=== PATIENT | male | born 1965 | race African-American/Black ===

== ENCOUNTER 2018-09-14 18:53 | Inpatient (IN) | payer OTHER ==
--- NOTE | 2018-09-14 19:15 | EDPHY ---
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 Pain unrelieved with oxycodone. No fever no chills. No paresthesia. No sensory or motor deficit. PRIMARY ONCOLOGY: Dr Rasheeda Moody, [facility], [place] REVIEW OF SYSTEMS: 10 systems reviewed and negative with the exception of the elements mentioned in the history of present illness PAST MEDICAL & SURGICAL HISTORY: Clear cell sarcoma left femur With diffuse metastases SOCIAL HISTORY:Nonsmoker. PHYSICAL EXAM (Prior to examination, patient consented to physical exam, hands were washed and my usual and customary physical exam procedures followed) 1) GENERAL: Well-developed, well-nourished, alert and oriented. Appears uncomfortable. 2) HEAD: Normocephalic, atraumatic 3) HEENT: Pupils equal, round, reactive to light bilaterally. Sclera anicteric. 4) NECK: Tender to palpation right paraspinous cervical region. No midline pain. No crepitus. No step-off. 5) LUNGS: Clear auscultation bilaterally, no wheezes, no rhonchi, no retractions. 6) HEART: Regular rate and rhythm, no murmur, no heave, no gallop. 7) ABDOMEN: No guarding, no rebound, no focal tenderness, negative McBurney's, negative Matamoros's, negative Rovsing's, negative peritoneal sign, 8) MUSCULOSKELETAL: Moving all extremities, no focal areas of tenderness, no obvious trauma. No peripheral edema or discoloration. 9) BACK: No CVA tenderness, no midline vertebral tenderness, no fluctuance, no step-off, no obvious trauma, no visual or palpable abnormality. 10) SKIN: No rash, no petechiae. 11) Psychiatric: Patient is oriented X 3, there is no agitation. 12) NEURO: Awake, alert, and oriented to person, place and time. Answers questions appropriately. There were no obvious focal neurologic abnormalities. No cerebellar dysfunction. Cranial nerves 2 through to 12 intact. Normal steady gait. Upper and lower extremities bilaterally with strength 5 / 5, reflexes 2+. DIFFERENTIAL DIAGNOSIS: In no particular order including but not limited to cervical fracture, cervical subluxation, pathologic fracture, muscle strain Constitutional: Initial Vital Signs Temperature (C) 37.6 C 09/14/18 19:20 Heart Rate 93 09/14/18 19:20 Respiratory Rate 16 09/14/18 19:20 Blood Pressure 138/90 H 09/14/18 19:20 O2 Sat (%) 95 09/14/18 19:20 O2 Delivery Mode Nasal Cannula O2 (L/minute) 2 Allergies/Adverse Reactions: No Known Allergies Allergy (Verified 09/14/18 20:07) Home Medications: Medication Instructions Recorded Acetaminophen [Tylenol ES 500 mg 1,000 mg PO Q6 PRN 09/14/18 (*)] Aspirin EC [Aspirin EC 325 mg (*)] 325 mg PO DAILY 09/14/18 Atorvastatin Calcium [Lipitor 20 20 mg PO DAILY 09/14/18 mg (*)] Dapagliflozin Propanediol [Farxiga] 10 mg PO DAILY 09/14/18 Hydrochlorothiazide [HCTZ (*)] 25 mg PO DAILY 09/14/18 Ibuprofen [Motrin (*)] 400 mg PO Q6H PRN 09/14/18 Levothyroxine [Synthroid 150 mcg 150 mcg PO DAILY06 09/14/18 (*)] Losartan Potassium [Cozaar 50 mg 100 mg PO DAILY 09/14/18 (*)] Multivitamins [Multivitamin (*)] 1 each PO DAILY 09/14/18 Sunitinib Malate [Sutent] 37.5 mg PO DAILY 09/14/18 amLODIPine BESYLATE [Norvasc 10 mg 10 mg PO DAILY 09/14/18 (*)] metFORMIN HCL [Glucophage 500 mg 1,000 mg PO BIDMEAL 09/14/18 (*)] oxyCODONE IR [Oxycodone Ir (*)] 5 - 10 mg PO Q4H PRN 09/14/18 Medical Decision Making - Diagnostics Imaging Results: Imaging Impressions Cervical Spine CT 09/14/18 19:19 Impression: 1. Nondisplaced fracture, pathologic, resulting from a lytic lesion at the right anterior aspect of C4, as above described. 2. Otherwise, multiple smaller lytic lesions throughout the cervical spine, without associated spinal canal encroachment or instability. Findings and recommendations discussed with Delfino Christie PA-C, at 8:32 p.m. on September 14, 2018. Final report concurs with initial preliminary interpretation. Images reviewed myself ED Course/Re-evaluation: 7:19 p.m.: Discussed case with secondary supervising physician Dr. Fabiano Chong in the ER. No neuro deficits on exam. Concern in this patient given his metastatic history, we discussed possibility of metastatic disease to the cervical spine. Will plan on more than likely admission, at a minimum for pain control, will obtain CT imaging and likely MRI. 8:33 p.m.: CT cervical spine is positive for right inferior cortex C4 pathologic fracture. Patient was placed into a cervical collar. I discussed the imaging results with the patient. He remains with a nonfocal exam no upper extremity weakness or deficits or complaints. Will plan on admission, consultation with Neurosurgery, hospitalist, Oncology. 8:41 p.m.: Consultation with Dr. Beard Neurosurgery 8:47 p.m.: Consultation with hospitalist Dr. Nolasco for admission 9:11 p.m.: Consultation with oncology Dr. Medina who will consult - Data Points Laboratory Results: Laboratory Results 09/14/18 20:00 09/14/18 20:00 09/14/18 09/14/18 20:00 20:00 WBC 8.11 10^3/uL 10^3/uL (3.80-9.50) RBC 4.43 10^6/uL 10^6/uL (4.40-6.38) Hgb 11.7 g/dL L g/dL (13.7-17.5) Hct 35.4 % L % (40.0-51.0) MCV 79.9 fL L fL (81.5-99.8) MCH 26.4 pg L pg (27.9-34.1) MCHC 33.1 g/dL g/dL (32.4-36.7) RDW 13.8 % % (11.5-15.2) Plt Count 494 10^3/uL H 10^3/uL (150-400) MPV 8.3 fL L fL (8.7-11.7) Neut % (Auto) 69.7 % % (39.3-74.2) Lymph % (Auto) 23.9 % % (15.0-45.0) [place] % (Auto) 5.7 % % (4.5-13.0) Eos % (Auto) 0.1 % L % (0.6-7.6) Baso % (Auto) 0.2 % L % (0.3-1.7) Nucleat RBC Rel Count 0.0 % % (0.0-0.2) Absolute Neuts (auto) 5.65 10^3/uL 10^3/uL (1.70-6.50) Absolute Lymphs (auto) 1.94 10^3/uL 10^3/uL (1.00-3.00) Absolute Monos (auto) 0.46 10^3/uL 10^3/uL (0.30-0.80) Absolute Eos (auto) 0.01 10^3/uL L 10^3/uL (0.03-0.40) Absolute Basos (auto) 0.02 10^3/uL 10^3/uL (0.02-0.10) Absolute Nucleated RBC 0.00 10^3/uL 10^3/uL (0-0.01) Immature Gran % 0.4 % % (0.0-1.1) Immature Gran # 0.03 10^3/uL 10^3/uL (0.00-0.10) Sodium 135 mEq/L mEq/L (135-145) Potassium 4.2 mEq/L mEq/L (3.3-5.0) Chloride 102 mEq/L mEq/L (97-110) Carbon Dioxide 24 mEq/l mEq/l (22-31) Anion Gap 9 mEq/L mEq/L (6-14) BUN 11 mg/dL mg/dL (7-23) Creatinine 0.6 mg/dL L mg/dL (0.7-1.3) Estimated GFR > 60 Glucose 161 mg/dL H mg/dL (70-100) Calcium 9.2 mg/dL mg/dL (8.5-10.4) Medications Given: Discontinued Medications Hydromorphone HCl (Dilaudid) 1 mg IVP EDNOW ONE Stop: 09/14/18 19:17 Last Admin: 09/14/18 19:49 Dose: 1 mg Ondansetron HCl (Zofran) 4 mg IVP EDNOW ONE Stop: 09/14/18 19:17 Last Admin: 09/14/18 19:49 Dose: 4 mg Departure - Departure Disposition: [facility] Inpatient Acute Clinical Impression: Pathologic fracture C4 Condition: Fair
[2018-09-14] MEDS ORDERED: HYDROmorphONE/DILAUDID 1 MG/ML INJ IVP ONE (19:16)
[2018-09-14] MEDS ORDERED: ONDANSETRON 4 MG/2 ML VIAL IVP ONE (19:16)
[2018-09-14 20:16] LABS: PLATELET COUNT 494 10^3/uL (150-400)
[2018-09-14] MEDS ORDERED: ACETAMINOPHEN 325 MG TAB PO PRN (21:07)
[2018-09-14] MEDS ORDERED: ONDANSETRON DISINTEGRATING 4 MG TAB PO PRN (21:07)
[2018-09-14] MEDS ORDERED: ONDANSETRON 4 MG/2 ML VIAL IVP PRN (21:07)
--- NOTE | 2018-09-14 21:15 | PDGENHP ---
History and Physical - Chief Complaint Neck pain - History of Present Illness Brian Wood is a 53 yo M with a PMHx of Clear cell carcinoma of L femur s/p L AKA with metastatic disease who presents to [facility] for 3 day hx of neck pain. He reports that neck pain started on Thursday Morning. He reports pain was sharp, R sided, radiated to his R shoulder. He was unable to turn his head to the right. He was taking oxycodone and icing with mild improvement in pain. He reports that pain persisted and symptoms worsening which prompted his ED visit today. History Information - Allergies/Home Medication List Allergies/Adverse Reactions: No Known Allergies Allergy (Verified 09/14/18 20:07) Home Medications: Acetaminophen [Tylenol ES 500 mg (*)] 1,000 mg PO Q6 PRN 09/14/18 [Last Taken Unknown] Aspirin EC [Aspirin EC 325 mg (*)] 325 mg PO DAILY 09/14/18 [Last Taken 09/11/18 ] Atorvastatin Calcium [Lipitor 20 mg (*)] 20 mg PO DAILY 09/14/18 [Last Taken ] Dapagliflozin Propanediol [Farxiga] 10 mg PO DAILY 09/14/18 [Last Taken 09/11/18 ] Hydrochlorothiazide [HCTZ (*)] 25 mg PO DAILY 09/14/18 [Last Taken 09/11/18] Ibuprofen [Motrin (*)] 400 mg PO Q6H PRN 09/14/18 [Last Taken 09/14/18] Levothyroxine [Synthroid 150 mcg (*)] 150 mcg PO DAILY06 09/14/18 [Last Taken ] Losartan Potassium [Cozaar 50 mg (*)] 100 mg PO DAILY 09/14/18 [Last Taken 09/11] Multivitamins [Multivitamin (*)] 1 each PO DAILY 09/14/18 [Last Taken 09/11/18] Sunitinib Malate [Sutent] 37.5 mg PO DAILY 09/14/18 [Last Taken 09/11/18] amLODIPine BESYLATE [Norvasc 10 mg (*)] 10 mg PO DAILY 09/14/18 [Last Taken ] metFORMIN HCL [Glucophage 500 mg (*)] 1,000 mg PO BIDMEAL 09/14/18 [Last Taken 09/11/18] oxyCODONE IR [Oxycodone Ir (*)] 5 - 10 mg PO Q4H PRN 09/14/18 [Last Taken Unknown] I have personally reviewed and updated: family history, medical history, social history, surgical history - Past Medical History hypertension Additional medical history: Clear cell carcinoma, HLD, Hypothyroidism - Surgical History Additional surgical history: L AKA - Family History Positive for: non-pertinent - Social History Smoking Status: Never smoked Review of Systems Review of Systems: ROS: 10pt was reviewed & negative except for what was stated in HPI & below Physical Exam Physical Exam: Temp Pulse Resp BP Pulse Ox 37.6 C 95 16 138/86 H 95 09/14/18 19:20 09/14/18 20:45 09/14/18 20:45 09/14/18 20:45 09/14/18 20:45 Constitutional: uncomfortable Eyes: PERRL Ears, Nose, Mouth, Throat: other (cervical collar in place) Cardiovascular: regular rate and rhythym Respiratory: no respiratory distress, no rales or rhonchi Gastrointestinal: soft, non-tender abdomen Genitourinary: no bladder fullness Skin: warm Musculoskeletal: pain with ROM, generalized weakness Neurologic: AAOx3 Psychiatric: interacting appropriately Lab Data & Imaging Review 09/14/18 20:00 09/14/18 20:00 WBC 8.11 10^3/uL (3.80-9.50) 09/14/18 20:00 RBC 4.43 10^6/uL (4.40-6.38) 09/14/18 20:00 Hgb 11.7 g/dL (13.7-17.5) L 09/14/18 20:00 Hct 35.4 % (40.0-51.0) L 09/14/18 20:00 MCV 79.9 fL (81.5-99.8) L 09/14/18 20:00 MCH 26.4 pg (27.9-34.1) L 09/14/18 20:00 MCHC 33.1 g/dL (32.4-36.7) 09/14/18 20:00 RDW 13.8 % (11.5-15.2) 09/14/18 20:00 Plt Count 494 10^3/uL (150-400) H 09/14/18 20:00 MPV 8.3 fL (8.7-11.7) L 09/14/18 20:00 Neut % (Auto) 69.7 % (39.3-74.2) 09/14/18 20:00 Lymph % (Auto) 23.9 % (15.0-45.0) 09/14/18 20:00 [place] % (Auto) 5.7 % (4.5-13.0) 09/14/18 20:00 Eos % (Auto) 0.1 % (0.6-7.6) L 09/14/18 20:00 Baso % (Auto) 0.2 % (0.3-1.7) L 09/14/18 20:00 Nucleat RBC Rel Count 0.0 % (0.0-0.2) 09/14/18 20:00 Absolute Neuts (auto) 5.65 10^3/uL (1.70-6.50) 09/14/18 20:00 Absolute Lymphs (auto) 1.94 10^3/uL (1.00-3.00) 09/14/18 20:00 Absolute Monos (auto) 0.46 10^3/uL (0.30-0.80) 09/14/18 20:00 Absolute Eos (auto) 0.01 10^3/uL (0.03-0.40) L 09/14/18 20:00 Absolute Basos (auto) 0.02 10^3/uL (0.02-0.10) 09/14/18 20:00 Absolute Nucleated RBC 0.00 10^3/uL (0-0.01) 09/14/18 20:00 Immature Gran % 0.4 % (0.0-1.1) 09/14/18 20:00 Immature Gran # 0.03 10^3/uL (0.00-0.10) 09/14/18 20:00 Sodium 135 mEq/L (135-145) 09/14/18 20:00 Potassium 4.2 mEq/L (3.3-5.0) 09/14/18 20:00 Chloride 102 mEq/L (97-110) 09/14/18 20:00 Carbon Dioxide 24 mEq/l (22-31) 09/14/18 20:00 Anion Gap 9 mEq/L (6-14) 09/14/18 20:00 BUN 11 mg/dL (7-23) 09/14/18 20:00 Creatinine 0.6 mg/dL (0.7-1.3) L 09/14/18 20:00 Estimated GFR > 60 09/14/18 20:00 Glucose 161 mg/dL (70-100) H 09/14/18 20:00 Calcium 9.2 mg/dL (8.5-10.4) 09/14/18 20:00 Assessment & Plan Assessment: C4 Pathologic Fracture - 3 days of neck pain - CT Cervical spine shows non-displaced fx, pathologic, resulting from lytic lesion at R ant. aspect of C4 - No focal deficits noted on exam - Neurosurgery consulted in ED, will see in the AM - Continue cervical collar overnight - Pain management PRN Metastatic Clear Carcinoma - Follows with [facility] in [place], Dr. Moody - Recently started Sunitinib last Thursday, will continue for now - ED has put call out to Oncology, f/u in AM - Per patient, he had recent PET that shows multiple metastases - Patient has appt at [facility] next month for 2nd opinion T2DM - Hold home Metformin, continue home Dapagliflozin - SSI ordered as IP HTN - Continue home HCTZ, Losartan, Amlodipine Hypothyroidism - Continue home Synthroid FEN: IVF PRN, Regular diet, NPO after midnight Code: FULL PPx: SubQ Heparin Dispo: Admit to Medicine
[2018-09-14] MEDS: HYDROmorphONE/DILAUDID 1 MG/ML INJ IVP PRN (22:48)
[2018-09-14] MEDS: HEPARIN 5,000 UNIT/0.5 ML INJ SC SCH (23:03)
[2018-09-15] MEDS: HEPARIN 5,000 UNIT/0.5 ML INJ SC SCH ×2 (04:47→15:43)
[2018-09-15] MEDS: LEVOTHYROXINE 150 MCG TAB PO SCH ×2 (04:48→09:12)
[2018-09-15] MEDS: ASPIRIN EC 325 MG TAB PO SCH (09:11)
[2018-09-15] MEDS: ATORVASTATIN CALCIUM 20 MG TAB PO SCH (09:12)
[2018-09-15] MEDS: MULTIVITAMINS 1 EACH TAB PO SCH (09:12)
[2018-09-15] MEDS: HYDROCHLOROTHIAZIDE 25 MG TAB PO SCH (09:12)
[2018-09-15] MEDS: LOSARTAN POTASSIUM 50 MG TAB PO SCH (09:12)
[2018-09-15] MEDS: IBUPROFEN 200 MG TAB PO PRN ×2 (09:18→13:02)
[2018-09-15] MEDS: SUNITINIB MALATE 37.5 MG PO SCH (09:30)
[2018-09-15] MEDS: Dapagliflozin Propanediol [Farxiga] 10 MG PO SCH (09:31)
--- NOTE | 2018-09-15 09:59 | PDMN ---
Medical Necessity Medical necessity: [facility] Musculoskeletal Disease: 53 yo w/ pathologic C4 fracture from clear cell carcinoma L femur s/p AKA w/ mets. Cervical collar placed, neurosurg consult. Meets IP criteria for vertebral fx requiring observation for instability or neurologic compromise.
--- NOTE | 2018-09-15 12:09 | ASMTCMCOM ---
CM Note CM Note Notes: Patient plan of care reviewed in rounds. Patient is a 53 year old male with diagnosis of Clear Cell Sarcoma who presented to the ED with c/o increasing neck pain. He has been diagnosed with a pathological fracture at C4 from metastatic disease. Nuerosurgery ordered collar and plan is likely to proceed with radiation therapy. Oncology to consult. CM to follow for needs. Plan: TBD Date Signed: 09/15/2018 12:08 PM Electronically Signed By:Aicha Reynoso RN
[2018-09-15] MEDS ORDERED: GADOBUTROL 10 ML VIAL IVP ONE (14:30)
--- NOTE | 2018-09-15 15:35 | ASMTCMCOM ---
CM Note CM Note Notes: CM met with pt and partner, Shireen. Both waiting to hear back from oncology. CM provided support and discussed additional services pt may need. Pt may benefit from adaptive equipment education from PT. CM to follow. Date Signed: 09/15/2018 03:35 PM Electronically Signed By:PURVI Cotton
[2018-09-15] MEDS: HYDROmorphONE/DILAUDID 1 MG/ML INJ IVP PRN (15:40)
--- NOTE | 2018-09-15 17:25 | HOSPPROG ---
Hospitalist Progress Note Assessment/Plan: * Pathologic fracture C4 -in C-collar -neurosurgery has ordered MRI for further eval -no emergent surgery, oncology considering XRT * Metastatic Sarcoma -continue chemo * AKA due to malignancy -PT/OT when clear for mobility * DM -CT done without IV contrast - okay to resume metformin * HTN -cozaar, HCTZ, norvasc Subjective: No new complaints. Objective: Vital Signs Temp Pulse Resp BP Pulse Ox 36.9 C 75 12 105/73 94 09/15/18 16:27 09/15/18 16:27 09/15/18 16:27 09/15/18 16:27 09/15/18 16:27 09/14/18 09/15/18 09/16/18 05:59 05:59 05:59 Intake Total 1300 350 Output Total 600 450 Balance 700 -100 CT spine - lytic lesion C4 with pathologic fracture case d/w DR. Medina regarding treatment plan Laboratory Tests 09/14/18 20:00 Hct 35.4 L MCV 79.9 L IV dilaudid for pain - Physical Exam Constitutional: no apparent distress, appears nourished, not in pain Cardiovascular: regular rate and rhythym, no murmur, rub, or gallop Respiratory: no respiratory distress, no rales or rhonchi, clear to auscultation Gastrointestinal: normoactive bowel sounds, soft, non-tender abdomen, no palpable masses Skin: no rashes or abrasions, no fluctuance, no induration Neurologic: AAOx3, sensation intact bilaterally Psychiatric: interacting appropriately, not anxious, not encephalopathic, thought process linear ICD10 Worksheet Patient Problems: Problems Problem Status Onset Sarcoma Acute - ICD10 Problem Qualifiers (1) Sarcoma
[2018-09-15] MEDS: metFORMIN HCL 500 MG TAB PO SCH (18:01)
--- NOTE | 2018-09-15 18:30 | GCON ---
DATE OF CONSULTATION: 09/15/2018 TIME SEEN: 6:45 a.m. CHIEF COMPLAINT: 1. Neck pain with history of sarcoma with CT scan showing likely mets to C-spine. 2. Lytic lesion at C4. HISTORY OF PRESENT ILLNESS: Mr. 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 He prese nted to the emergency department after calling 911 with a 3-day history of neck pain. He reports emile t the neck pain started on Thursday morning. This occurred when he woke up. He was having some diffic ulty with moving his neck due to the pain. He also complains and continues to complain of some right shoulder pain. He denies any other upper extremity complaints such as numbness, tingling, or weakne ss. He denies any lower extremity numbness, tingling, or weakness. He does have an rqhoj-shl-ceay a mputation on the left side as mentioned. On Thursday, he woke up with this pain, was able to get up to the couch. Thursday, it was more difficult for him to get out of bed, and then yesterday he came to t he point where he slipped off the sofa and was weak enough that he could not get himself up. He wait ed until his girlfriend came home and was able to help him. They called 911 and brought him into the emergency department for evaluation. He denies any chest pain or shortness of breath. No headaches . No visual changes. No shortness of breath. No abdominal complaints. No complaints. REVIEW OF SYSTEMS: Complete 10-point review of systems was performed and negative, otherwise noted i n HPI. ALLERGIES: No known drug allergies. MEDICATIONS: Prior to admission, aspirin, Tylenol, Lipitor, Farxiga, hydrochlorothiazide, Motrin, Sy nthroid, Cozaar, multivitamin, Sutent, Norvasc, Glucophage, and oxycodone. PAST MEDICAL HISTORY: Significant for hypertension, clear cell carcinoma, hyperlipidemia, and hypoth yroidism. SURGICAL HISTORY: Left byphb-wfh-mopc amputation. FAMILY HISTORY: Reviewed and not pertinent. SOCIAL HISTORY: The patient is in a partnership, lives on [address], and is a nonsmoker, never has. PHYSICAL EXAM: GENERAL: This is an awake, alert, oriented male in no acute distress. VITAL SIGNS: Most recent, blood pressure 130/79, 96 MAP, 77 heart rate, 16 respirations, 97% on 2 L, temperature 37.3. HEENT: Head is normocephalic, atraumatic. Pupils are equal, round, reactive to light. EOM i s intact. Full visual han by confrontation. Ears are patent. Nose is patent. NECK: Soft and s upple. Range of motion was not tested due to the nature of injury. Collar in place: RESPIRATORY AN D CARDIAC: Deferred. ABDOMEN: Soft, nontender. No peritoneal signs. AND RECTAL: Deferred. N EUROLOGIC: Patient is awake, alert, oriented to name, place, location, date, time, and situation. M jeff is intact to immediate, past, and current events. Speech: No aphasia, dysarthria, or dysphoni a. Cranial nerves 2-12 grossly intact. Motor: Patient has 5/5 strength in all muscle groups of yuliya ateral upper and lower extremities to include deltoids, biceps, triceps, brachioradialis, wrist flexi on, extensors, wrist closer, intrinsic fingers, iliopsoas, quadriceps, hamstring, plantar flexion, dorsiflexi on, EHL testing with the exception of left lower extremity due to above-knee amputation. Has good hi p flexor at 5/5. Sensation is grossly intact to light touch throughout all dermatome distributions o f the lower extremities except noted in left lower extremity due to above-knee amputation. The patie nt has 2+ DTRs to biceps, triceps, brachioradialis, knee jerk on the right and ankle jerk on the righ t. MEDICAL DECISION MAKING: Diagnostic studies, laboratory tests obtained 09/14/2018, at 8 o'clock show a white count of 8.11, H and H 11.7 and 35.4 with a platelet count of 494. Chemistries on 8, sodium 135, potassium 4.2, chloride 102, CO2 24, creatinine 0.6, and glucose of 161. A CT scan of the cervical spine obtained 09/14/2018, at 1919 shows a nondisplaced fracture that is li luz pathological resulting from a lytic lesion in the right anterior aspect of C4. There are multip le smaller lytic lesions throughout the cervical spine. Pending MRI of the cervical, thoracic, and lumbar spine. IMPRESSION: 1. History of clear cell sarcoma per patient's account. From admitting doctor was clear cell carcin brian of the left lower extremity. 2. C4 pathologic fracture with multiple lytic lesions noted in the cervical spine with recent onset of neck pain. 3. Thoracic and lumbar spine pain. PLAN AND DISCUSSION: The patient is a 53-year-old male that he reports to me of a clear cell sarcoma , but his admitting doctor wrote in his note is a clear cell carcinoma which seems more consistent wi th his diagnosis. We will defer this to Oncology as they were consulted as well. He has a pathologi c fracture of C4 with multiple lytic lesions in the cervical spine. He does have thoracic and lumbar spine pain. An MRI of the cervical, thoracic and lumbar spine was ordered with and without contrast . The patient was seen, evaluated both by myself and Dr. Price. At this point, he does have some r ight shoulder pain, but neurologically he is fine to his upper and right lower extremity. He does abarca ve this qyenz-jki-jmio amputation that he has good hip mobility with. I spoke with the patient about the diagnostic imaging. We will get this and then will also get an oncology evaluation. He underst ands and agrees with the treatment plan and course. All questions and concerns were answered. /[id number]/MODL
--- NOTE | 2018-09-15 20:42 | GCON ---
PRIMARY ONCOLOGIST: Ceci Moody MD. 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 He last saw Dr. Moody 08/19/2018. His history dates back to February 2017 when he was diagnosed wit h stage 3 clear cell sarcoma of left lower extremity. He was treated with radical resection. Final path showing a 10 cm clear cell sarcoma with negative margins. Postoperatively, he received radiatio n therapy. Due to his histology, which does not respond to systemic chemotherapy he was not recommen ded adjuvant treatment. The patient was on observation with periodic imaging, doing well until 2017, when he developed a local recurrence. This was treated with left above knee amputation. Postsurgically, he resumed regular imaging of the chest. This was done prior to his last visit with Dr. Moody in mid July and showed new pulmonary nodules, most of them small in the 4-6 mm range, largest one in right upper lobe measured 1.2 x 0.6 cm in size. He was referred for wedge excisions. He had the larger lesion resected, in addition to this, two smaller lesions were also excised. Marilia l path showed high-grade clear cell sarcoma involving the larger lesions as well as the smaller lesio ns. Based on this information, the patient now has unresectable disease and appears to have diffuse infiltration of lung by small metastatic lesions measuring anywhere from 3-4 mm in size. When he met with Dr. Moody in early August, discussed that his cancer is not curable. Discussed the fact that clear cell sarcomas are typically chemotherapy resistant. Case reports of patient responding to Sute nt which Dr. Moody has prescribed. She also sent a foundation 1 test and the results have been del ayed and are pending at this time. The patient is also seeking a second opinion at [facility]. Yesterday evening, the patient presented to [facility] with acute neck pain that has be en going on for 3 days. The patient reported neck pain started on Thursday morning, was sharp right-si ded, radiated to right shoulder, unable to turn his head. No improvement of pain with narcotics and i cing. CT of the cervical spine showed nondisplaced C4 fracture, a lytic lesion at this area measuring 11 x 9 mm and multiple additional lucencies present for example at C5 and at C3. No spinal canal encroach ment or instability. Based on his outpatient records, it looks like he was pending initiation of Zom eta for lytic bone lesions. The patient is currently in full spine MRI right now, not able to take a history. PAST MEDICAL HISTORY: Hypertension, also has a history of diabetes mellitus type 2. PAST SURGICAL HISTORY: Reviewed in HPI. Had a left [id number] amputation. FAMILY HISTORY: Not pertinent. SOCIAL HISTORY: Never smoked. MEDS: Have been reviewed in EMR. PHYSICAL EXAM: VITAL SIGNS: Today only have vitals which show blood pressure 133/79, heart rate 73, saturating 97% on 2 liters nasal cannula, temperature is 36.8. LABS: Hemoglobin 11.7, hematocrit 35.4, MCV is 79, platelet count of 494,000. ASSESSMENT AND PLAN: A 53-year-old gentleman with metastatic clear cell sarcoma, significant amount of metastases to the lung, mostly in a miliary pattern, who presents with a new C4 lytic lesion and n on displaced fracture. 1. Acute neck pain due to lytic lesion and C4 nondisplaced fracture. Currently in a neck brace. Neur osurgery has ordered full spine MRI which is pending right now. The patient was to get Zometa as an outpatient today based on outpatient records. I believe he has started on Sutent. Will discuss with Neurosurgery. He may get some mild benefit from SBRT, although clear cell sarcomas are not typically very responsive. He has no evidence of cord compression and would treat conservatively at this time . Will discuss with Dr. Luiz Fuller. 2. Pain management. Controlled on current regimen. 3. Metastatic clear cell sarcoma. Follow up with Dr. Moody [facility] in [place]. Have communicated with her, has begun Sutent and seemingly doing relatively well on this now. I do not have access to his most recent PET scan, but apparently showed diffuse bony disease. He is also pending a second opinio n at [facility]. 4. Type 2 diabetes, hypertension, hypothyroidism, per Internal Medicine. We will continue to follow and discuss with Neurosurgery as well as Dr. Albright. More than 30 minutes spent with patient on chart review and looking over previous labs and imaging. /[id number]/MODL
[2018-09-15] MEDS: oxyCODONE IR 5 MG TAB PO PRN (21:31)
[2018-09-16] MEDS: IBUPROFEN 200 MG TAB PO PRN (05:50)
[2018-09-16] MEDS: LEVOTHYROXINE 150 MCG TAB PO SCH (05:50)
--- NOTE | 2018-09-16 06:53 | NEUSURGPN ---
Assessment/Plan: Assessment: 53 yo male with hx of clear cell sarcoma with recent hx of left AKA in 07/06. Pt presents with a new C4 pathologic fracture Plan: -clear cell sarcoma: pt with MRI of the C and T spine done that shows extensive tumor mets in the spine, ribs, and sternum -likely will not recommend any surgery -pending MRI of the L spine this am -PT/OT -Hospitalist admitted -Oncology on board as well -continue with collar at all times -call with any questions or concerns -pt understands and agrees Subjective: Awake and alert. NAD. Eating/drinking and voiding. No f/c/n/v/d. No new events or concerns. Objective: AAO x 3, PERRLA/EOMI no droop CN 2-12 grossly intact +lt touch 5/5 BUE = 5/5 RLE LLE 5/5 to HF/IP-pt with left AKA Neuro Check Frequency: per routine Urinary Catheter in Place: No - Physician Discussed Patient with Dr.: Albert Patient Seen by .: Albert Neurosurgery Physical Exam - Vitals, I&O, Labs I and O 09/15/18 09/16/18 09/17/18 05:59 05:59 05:59 Intake Total 1300 1350 Output Total 600 950 Balance 700 400 Weight 102.058 kg Intake: Oral (ml) 300 1350 IV Infused (ml) 1000 Output: Urine (ml) 600 950 Urinal 600 950 Other: Intake Quantity Yes Sufficient Number of Voids 0 Urinal 1 1 Vital Signs Temp Pulse Resp BP Pulse Ox 37.3 C 81 16 125/86 H 88 L 09/16/18 04:45 09/16/18 04:45 09/16/18 04:45 09/16/18 04:45 09/16/18 04:45 ICD10 Worksheet Patient Problems: Problems Problem Status Onset Sarcoma Acute
[2018-09-16] MEDS: ATORVASTATIN CALCIUM 20 MG TAB PO SCH (08:37)
[2018-09-16] MEDS: LOSARTAN POTASSIUM 50 MG TAB PO SCH (08:37)
[2018-09-16] MEDS: HYDROCHLOROTHIAZIDE 25 MG TAB PO SCH (08:39)
[2018-09-16] MEDS: MULTIVITAMINS 1 EACH TAB PO SCH (08:39)
[2018-09-16] MEDS: ASPIRIN EC 325 MG TAB PO SCH (08:44)
[2018-09-16] MEDS: Dapagliflozin Propanediol [Farxiga] 10 MG PO SCH (08:44)
[2018-09-16] MEDS: SUNITINIB MALATE 37.5 MG PO SCH (08:46)
[2018-09-16] MEDS ORDERED: ENOXAPARIN 40 MG/0.4 ML SYR SC SCH (09:00)
[2018-09-16] MEDS: metFORMIN HCL 500 MG TAB PO SCH (10:32)
[2018-09-16 12:41] VITALS: BP 114/74
--- NOTE | 2018-09-16 12:54 | SOAPPROG ---
SOAP Progress Note Assessment/Plan: Assessment/Plan: 53 yo gentleman w metastatic clear cell sarcoma admitted w acute neck pain from C4 fracture 1. C4 fracture - nondisplaced and no cord compression NSG appreciated have set up Consult w Dr Candace Faye in [place] for SBRT early next week will need Zometa as outpt cont neck brace and follow up w NSG 2. stage IV clear cell sarcoma - on sutent diffuse osseous and lung disease 3. Pain - will go home w current regimen 4. Other medical issues - per IM Home today 09/16/18 12:50 09/16/18 12:54 Subjective: still in neck collar no acute events Objective: Vital Signs Temp Pulse Resp BP Pulse Ox 37.7 C 78 16 114/74 90 L 09/16/18 12:38 09/16/18 07:17 09/16/18 12:38 09/16/18 12:38 09/16/18 12:38 09/15/18 09/16/18 09/17/18 05:59 05:59 05:59 Intake Total 1300 1350 Output Total 600 950 Balance 700 400 gen - NAD HEENT - anicteric CV - RRR Resp - CTA anteriorly Abd - soft, NT Ext - no edema Neuro - nonfocal ICD10 Worksheet Patient Problems: Problems Problem Status Onset Sarcoma Acute
[2018-09-16] MEDS: oxyCODONE IR 5 MG TAB PO PRN (13:14)
--- NOTE | 2018-09-16 15:33 | ASMTDCNOTE ---
Case Management Discharge Discharge Order Complete? Answers: Yes Patient to Obtain Answers: via Family Medications Transportation Arranged Answers: Family/Friends Transport will Pick (Date 09/16/2018 12:00 AM & Time) Family Notified Answers: Yes Notes: pt to call significant other Discharge Comments Notes: Spoke with pt in the room and with RN and physician. OT recommending home independently and pt is comfortable with this plan. No CM needs noted at this time. Date Signed: 09/16/2018 03:32 PM Electronically Signed By:Cyndy Godinez
--- NOTE | 2018-09-16 15:36 | ASDISCHSUM ---
Discharge Information Plan Status:Home with No Needs Medically Cleared to Leave:09/15/2018 Discharge Date:09/15/2018 CM D/C Disposition:Home Health Service ADT D/C Disposition: Projected Discharge Date:09/15/2018 Transportation at D/C:Family Discharge Delay Reason: Follow-Up Date:09/15/2018 Discharge Slot: Final Diagnosis:pathological cervical fracture Placement Information Patient Contact Information Contact Name:ROBB Relationship:Life Partner Address:[address] [place] [address] Work Phone: City:[place] Alternate Phone: [facility]/Zip Code:[place] [address] Email: Financial Information Financial Class:BCOP Primary Plan Desc:JELANI MCGEE PPO Primary Plan Number:[id number] Secondary Plan Desc: Secondary Plan Number: Assessment Information [facility] CM Progress Note CM Note CM Note Notes: Patient plan of care reviewed in rounds. Patient is a 53 year old male with diagnosis of Clear Cell Sarcoma who presented to the ED with c/o increasing neck pain. He has been diagnosed with a pathological fracture at C4 from metastatic disease. Nuerosurgery ordered collar and plan is likely to proceed with radiation therapy. Oncology to consult. CM to follow for needs. Plan: TBD Date Signed: 09/15/2018 12:08 PM Electronically Signed By:Aicha Reynoso RN [facility] CM Progress Note CM Note CM Note Notes: CM met with pt and partner, Shireen. Both waiting to hear back from oncology. CM provided support and discussed additional services pt may need. Pt may benefit from adaptive equipment education from PT. CM to follow. Date Signed: 09/15/2018 03:35 PM Electronically Signed By:PURVI Cotton Case Management Discharge Plan Note Case Management Discharge Discharge Order Complete? Answers: Yes Patient to Obtain Answers: via Family Medications Transportation Arranged Answers: Family/Friends Transport will Pick (Date 09/16/2018 12:00 AM & Time) Family Notified Answers: Yes Notes: pt to call significant other Discharge Comments Notes: Spoke with pt in the room and with RN and physician. OT recommending home independently and pt is comfortable with this plan. No CM needs noted at this time. Date Signed: 09/16/2018 03:32 PM Electronically Signed By:Cyndy Godinez Intervention Information Intervention Type:*Incorrect Registration Date of Service:09/15/2018 09:08 AM Patient Type:Observation Staff Member:Glo Carter Hours: Discipline: Severity: Comment:
--- NOTE | 2018-09-16 15:39 | ASMTLACE ---
LACE Length of stay for Answers: 2 days current admission Acuity / Level of Answers: Yes Care: Did the patient have an inpatient admission? Comorbidities - select Answers: Any tumor (including all that apply lymphoma or leukemia) Other Notes: HLD, Hypothyroid # of Emergency department Answers: 1-2 visits in the last 6 months Score: 9 Date Signed: 09/16/2018 03:38 PM Electronically Signed By:Cyndy Godinez
--- NOTE | 2018-09-16 16:23 | PDDCSUM ---
Discharge Summary Discharge Summary: Date of Admission: 09/14/2018 Date of Discharge: 09/16/2018 Consults: Neurosurgery, Oncology Procedure: Cervical Spine XR, MRI Cervical/Thoracic Spine Followup: Neurosurgery, Oncology Hospital Course Problem List: * Pathologic fracture C4 -in C-collar -Neurosurgery consulted who recommend no surgical intervention, keep C- collar until f/u with them with repeat imaging -Oncology consulted who have set up outpatient radiation * Metastatic Sarcoma -continue chemo * AKA due to malignancy * DM - Resume home medications upon discharge * HTN - continue home medications including cozaar, HCTZ, norvasc Time spent on discharge was >35 minutes with >50% of time spent on patient education and counseling
[2018-09-17] MEDS ORDERED: metFORMIN HCL 500 MG TAB PO SCH (18:00)
== END 2018-09-16 16:30 | disposition home or self-care (01) | DRG 543 ==
LOC: OBSVTOIN 21:09 → F1N 21:52
PROVIDERS: ADMIT Internal Medicine; ATTEND Internal Medicine
DX: M84.58XA Pathological fracture in neoplastic disease, other specified site, initial encounter for fracture (principal); C79.51 Secondary malignant neoplasm of bone; C49.22 Malignant neoplasm of connective and soft tissue of left lower limb, including hip; C78.00 Secondary malignant neoplasm of unspecified lung; Z89.612 Acquired absence of left leg above knee; I10 Essential (primary) hypertension; E11.9 Type 2 diabetes mellitus without complications; E03.9 Hypothyroidism, unspecified; E78.5 Hyperlipidemia, unspecified; Z79.84 Long term (current) use of oral hypoglycemic drugs
CPT/HCPCS: 96374; 97165-GO; 97535-GO; A9585; J1170; J1650; J2405; L0174

== ENCOUNTER 2018-10-23 21:30 | Inpatient (IN) | payer OTHER ==
[2018-10-23] MEDS ORDERED: NS 1,000 ML IV ONE ×4 (21:54→23:23)
[2018-10-23] MEDS ORDERED: ONDANSETRON 4 MG/2 ML VIAL IVP ONE (21:54)
--- NOTE | 2018-10-23 21:54 | EDPHY ---
H & P Stated Complaint: Abd cramping, n/v/d x12 days Time Seen by Provider: 10/23/18 22:01 HPI/ROS: HPI CHIEF COMPLAINT: Nausea, vomiting, diarrhea HISTORY OF PRESENT ILLNESS: Very pleasant 53-year-old male, history of sarcoma , on chemotherapy, presents emergency room with nausea vomiting diarrhea that is been going on for days. Mainly watery diarrhea with some crampy abdominal pain as well as vomiting and nausea unable to tolerate p.o.. Presents emergency room denies chest pain or shortness of breath. It Is noted he is tachycardic, and borderline hypotensive. Dr. Moody is his Oncologist. Past Medical History: Sarcoma, above the knee amputation on the left, metastatic disease to CT for with a pathological fracture, diabetes, hypertension Past Surgical History: AKA left leg Social History: Denies drugs alcohol tobacco. Family History: Noncontributory ROS REVIEW OF SYSTEMS: 10 Systems were reviewed and negative with the exception of the elements mentioned in the history of present illness. Exam Constitutional appears well nontoxic no acute distress triage nursing summary reviewed, vital signs reviewed, awake/alert. Tachycardic and hypotensive. Eyes normal conjunctivae and sclera, EOMI, PERRLA. HENT in a cervical collar Mize. normal inspection, atraumatic, moist mucus membranes, no epistaxis, neck supple/ no meningismus, no raccoon eyes. Respiratory clear to auscultation bilaterally, normal breath sounds, no respiratory distress, no wheezing. Cardiovascular rate normal, regular rhythm, no murmur, no edema, distal pulses normal. Gastrointestinal soft, non-tender, no rebound, no guarding, normal bowel sounds, no distension, no pulsatile mass. Genitourinary no CVA tenderness. Musculoskeletal no midline vertebral tenderness, full range of motion, no calf swelling, no tenderness of extremities, no meningismus, good pulses, neurovascularly intact. Skin pink, warm, & dry, no rash, skin atraumatic. Neurologic awake, alert and oriented x 3, AAOx3, moves all 4 extremities equally, motor intact, sensory intact, CN II-XII intact, normal cerebellar, normal vision, normal speech. Psychiatric normal mood/affect. Heme/Lymph/Immune no lymphadenopathy. Differential Diagnosis: Includes but is not limited to in a particular order dehydration, electrolyte disturbance, acute diarrheal illness, colitis, acute kidney injury, renal failure, electrolyte disturbance, infection, bacteremia Medical Decision Making: Plan for this patient IV establishment IV fluid bolus 2 L normal saline, basic blood work, electrolytes, CT scan abdomen pelvis with IV contrast rule out colitis, blood cultures, lactic acid, UA, and re-evaluate. Stool studies. Admit to hospitalist for ongoing dehydration acute kidney injury. Re-evaluation: CT scan abdomen pelvis without contrast was performed due to diarrhea and abdominal cramping. Unable to obtain with IV contrast due to elevated creatinine Shows extensive metastatic disease, as well as ascites. No acute inflammatory process seen. Dr. Jackson. 2323: Patient's blood pressure noted to be slightly low in 80s his dad 90 systolic. This is after 2 L of fluid. I have ordered the patient is 2nd 2 L of fluid. The patient is afebrile here however does have ascites on his CT scan, extensive metastatic disease. Is also noted he was hypoxic 88% on room air. Also noted he is dry with creatinine 1.6. His hypotension is concerning this could be due to dehydration from nausea vomiting diarrhea however this could also be due to sepsis. He is at high risk for sepsis given chemotherapy. Given his hypotension I have ordered the patient other 2 L of fluid. This would be a total 4 L. He is maintaining his map appropriately Will need to watch his blood pressure closely. I have ordered him antibiotics at this time Flagyl and Rocephin in case he has a bacterial infection given the ascites on his CT scan. Given his diarrhea. Blood cultures pending Lactic acid over 2. Will trend. Will admit to the hospitalist service mostly step-down unit. Critical Care: Total Critical Care Time Spent Managing this Patient: 85 Minutes. This time was spent Exclusively with this patient. This Care was exclusive of procedures. The Organ System/life at risk was says hypotension, dehydration, acute kidney injury, possible sepsis This Patient was in Critical Condition because hypotension, dehydration, acute injury, possible sepsis Source: Patient - Personal History Current Tetanus Diphtheria and Acellular Pertussis (TDAP): Yes - Medical/Surgical History Hx Asthma: No Hx Chronic Respiratory Disease: No Hx Diabetes: Yes Hx Cardiac Disease: No Hx Renal Disease: No Hx Cirrhosis: No Hx Alcoholism: No Hx HIV/AIDS: No Hx Splenectomy or Spleen Trauma: No Other PMH: left leg cancer w/ mets, left leg AKA 06/24/18, leg surgery March 2017 , partial R lobectomy 08/13/18, hypothyroid - Social History Smoking Status: Never smoked Constitutional: Initial Vital Signs O2 Sat (%) 96 10/23/18 21:40 O2 Delivery Mode Nasal Cannula O2 (L/minute) 3 Allergies/Adverse Reactions: No Known Allergies Allergy (Verified 10/23/18 21:42) Home Medications: Medication Instructions Recorded Acetaminophen [Tylenol ES 500 mg 1,000 mg PO Q6 PRN 09/14/18 (*)] Atorvastatin Calcium [Lipitor 20 20 mg PO HS 09/14/18 mg (*)] Dapagliflozin Propanediol [Farxiga] 10 mg PO DAILY 09/14/18 Hydrochlorothiazide [HCTZ (*)] 25 mg PO DAILY 09/14/18 Ibuprofen [Motrin (*)] 400 mg PO Q6H PRN 09/14/18 Losartan Potassium [Cozaar 50 mg 100 mg PO DAILY 09/14/18 (*)] Sunitinib Malate [Sutent] 37.5 mg PO DAILY 09/14/18 amLODIPine BESYLATE [Norvasc 10 mg 10 mg PO DAILY 09/14/18 (*)] metFORMIN HCL [Glucophage 500 mg 1,000 mg PO BIDMEAL 09/14/18 (*)] oxyCODONE IR [Oxycodone Ir (*)] 5 - 10 mg PO Q3HRS PRN #30 tab 09/16/18 Levothyroxine [Synthroid 175 mcg 175 mcg PO DAILY06 10/23/18 (*)] Megestrol Acetate 800 mg PO DAILY 10/23/18 Ondansetron [Ondansetron Odt] 8 mg PO Q8HRS PRN 10/23/18 Potassium Cl [Klor-Con 20 meq (*)] 20 meq PO DAILY 10/23/18 Prochlorperazine Maleate 10 mg PO Q6HRS PRN 10/23/18 [Compazine 10mg (*)] Medical Decision Making - Diagnostics Imaging Results: Imaging Impressions Chest X-Ray 10/23/18 22:01 Impression: Poor inspiratory effort with mild atelectasis or less likely infiltrate at both lung bases. Abdomen/Pelvis CT 10/23/18 22:31 Impression: 1. Extensive osseous metastatic disease as above. 2. Moderate ascites. Stranding in the mesentery and omentum which could represent carcinomatosis. 3. Selection of bowel wall thickening in the colon at the splenic flexure which could be inflammatory or neoplastic. Adjacent soft tissue mass in the mesentery. 4. Enlarged lymph nodes in the left pelvis and proximal left thigh probably representing metastatic disease. 5. Mild bilateral pleural effusions. Atelectasis at both lung bases. Evidence of prior granulomatous disease. Results called and discussed with Armando Bardales MD at 10/23/2018 23:10. - Data Points Laboratory Results: Laboratory Results 10/23/18 21:45 10/23/18 21:45 10/23/18 10/23/18 10/23/18 21:45 21:45 21:45 WBC 12.12 10^3/uL H 10^3/uL (3.80-9.50) RBC 4.05 10^6/uL L 10^6/uL (4.40-6.38) Hgb 10.9 g/dL L g/dL (13.7-17.5) Hct 33.4 % L % (40.0-51.0) MCV 82.5 fL fL (81.5-99.8) MCH 26.9 pg L pg (27.9-34.1) MCHC 32.6 g/dL g/dL (32.4-36.7) RDW 21.6 % H % (11.5-15.2) Plt Count 533 10^3/uL H 10^3/uL (150-400) MPV 8.3 fL L fL (8.7-11.7) Neut % (Auto) 86.9 % H % (39.3-74.2) Lymph % (Auto) 8.0 % L % (15.0-45.0) [place] % (Auto) 4.5 % % (4.5-13.0) Eos % (Auto) 0.0 % L % (0.6-7.6) Baso % (Auto) 0.1 % L % (0.3-1.7) Nucleat RBC Rel Count 0.4 % H % (0.0-0.2) Absolute Neuts (auto) 10.53 10^3/uL H 10^3/uL (1.70-6.50) Absolute Lymphs (auto) 0.97 10^3/uL L 10^3/uL (1.00-3.00) Absolute Monos (auto) 0.55 10^3/uL 10^3/uL (0.30-0.80) Absolute Eos (auto) 0.00 10^3/uL L 10^3/uL (0.03-0.40) Absolute Basos (auto) 0.01 10^3/uL L 10^3/uL (0.02-0.10) Absolute Nucleated RBC 0.05 10^3/uL H 10^3/uL (0-0.01) Immature Gran % 0.5 % % (0.0-1.1) Immature Gran # 0.06 10^3/uL 10^3/uL (0.00-0.10) PT 17.3 SEC H SEC (12.0-15.0) INR 1.40 H (0.83-1.16) APTT 33.2 SEC SEC (23.0-38.0) VBG Lactic Acid Sodium 134 mEq/L L mEq/L (135-145) Potassium 3.7 mEq/L mEq/L (3.5-5.2) Chloride 101 mEq/L mEq/L (97-110) Carbon Dioxide 25 mEq/l mEq/l (22-31) Anion Gap 8 mEq/L mEq/L (6-14) BUN 27 mg/dL H mg/dL (7-23) Creatinine 1.6 mg/dL H mg/dL (0.7-1.3) Estimated GFR 46 Glucose 231 mg/dL H mg/dL (70-100) Calcium 7.6 mg/dL L mg/dL (8.5-10.4) Total Bilirubin 0.9 mg/dL mg/dL (0.1-1.4) Conjugated Bilirubin 0.6 mg/dL H mg/dL (0.0-0.5) Unconjugated Bilirubin 0.3 mg/dL mg/dL (0.0-1.1) AST 67 IU/L H IU/L (17-59) ALT 34 IU/L IU/L (21-72) Alkaline Phosphatase 173 IU/L H IU/L (38-126) Total Protein 5.8 g/dL L g/dL (6.3-8.2) Albumin 2.4 g/dL L g/dL (3.5-5.0) Lipase 66 IU/L IU/L (23-300) 10/23/18 21:45 WBC RBC Hgb Hct MCV MCH MCHC RDW Plt Count MPV Neut % (Auto) Lymph % (Auto) [place] % (Auto) Eos % (Auto) Baso % (Auto) Nucleat RBC Rel Count Absolute Neuts (auto) Absolute Lymphs (auto) Absolute Monos (auto) Absolute Eos (auto) Absolute Basos (auto) Absolute Nucleated RBC Immature Gran % Immature Gran # PT INR APTT VBG Lactic Acid 2.2 mmol/L H mmol/L (0.7-2.1) Sodium Potassium Chloride Carbon Dioxide Anion Gap BUN Creatinine Estimated GFR Glucose Calcium Total Bilirubin Conjugated Bilirubin Unconjugated Bilirubin AST ALT Alkaline Phosphatase Total Protein Albumin Lipase Medications Given: Discontinued Medications Sodium Chloride (Ns) 1,000 mls @ 0 mls/hr IV EDNOW ONE; Wide Open PRN Reason: Protocol Stop: 10/23/18 21:55 Last Admin: 10/23/18 21:52 Dose: 1,000 mls Sodium Chloride (Ns) 1,000 mls @ 0 mls/hr IV EDNOW ONE; Wide Open PRN Reason: Protocol Stop: 10/23/18 21:55 Last Admin: 10/23/18 21:59 Dose: 1,000 mls Sodium Chloride (Ns) 1,000 mls @ 0 mls/hr IV ONCE ONE PRN Reason: Wide Open Stop: 10/23/18 23:05 Last Admin: 10/23/18 23:06 Dose: 1,000 mls Ondansetron HCl (Zofran) 4 mg IVP EDNOW ONE Stop: 10/23/18 21:55 Last Admin: 10/23/18 21:58 Dose: 4 mg Departure - Departure Disposition: [facility] Acute Clinical Impression: Hypotension, LE (acute kidney injury), Dehydration, Diarrhea Condition: Critical Referrals: Florentino Huang DO [Primary Care Provider] - As per Instructions
[2018-10-23 22:05] LABS: PLATELET COUNT 533 10^3/uL (150-400)
[2018-10-23 22:14] LABS: INR 1.4 (0.83-1.16); PROTIME(PATIENT) 17.3 SEC (12.0-15.0)
[2018-10-23] MEDS ORDERED: IOPAMIDOL (ISOVUE-300) 100 ML BTL ONE (22:26)
[2018-10-23] MEDS ORDERED: ONDANSETRON DISINTEGRATING 4 MG TAB PO PRN (23:15)
[2018-10-23] MEDS ORDERED: PROMETHAZINE HCL 25 MG/ML INJ IVP PRN (23:15)
--- NOTE | 2018-10-24 00:14 | PDGENHP ---
History and Physical - Chief Complaint Abdominal pain, nausea, diarrhea - History of Present Illness 53 yo M w/ hx of metastatic sarcoma, DM, and HTN presents with several days of abdominal pain, vomiting, and diarrhea. The patient tells me his diarrhea has been going on for about two weeks. He feels this occurs almost any time he takes PO. Over the last week he has developed nausea/vomiting and abdominal pain as well. He saw his oncologist on who gave him IVF and stopped his oral chemotherapy agent, sunitinib. Despite this, his symptoms have worsened over the last few days and he presents to the ED today. In the ED he has been hypotensive but responsive to fluids. He has an elevated WBC and LE on laboratory work-up. At the time of my evaluation he is complaining only of mild epi-gastric and RUQ abdominal pain. His CT scan demonstrates moderate ascites and stranding in the mesentery and omentum that could represent carcinomatosis; also see is a thickened portion of colon near the splenic flexure. Case discussed with ED physician Dr. Durán; records reviewed and summarized above. History Information - Allergies/Home Medication List Allergies/Adverse Reactions: No Known Allergies Allergy (Verified 10/23/18 21:42) Home Medications: Acetaminophen [Tylenol ES 500 mg (*)] 1,000 mg PO Q6 PRN 09/14/18 [Last Taken ] Atorvastatin Calcium [Lipitor 20 mg (*)] 20 mg PO HS 09/14/18 [Last Taken ] Dapagliflozin Propanediol [Farxiga] 10 mg PO DAILY 09/14/18 [Last Taken 10/21/18 ] Hydrochlorothiazide [HCTZ (*)] 25 mg PO DAILY 09/14/18 [Last Taken 10/23/18] Ibuprofen [Motrin (*)] 400 mg PO Q6H PRN 09/14/18 [Last Taken 10/09/18] Losartan Potassium [Cozaar 50 mg (*)] 100 mg PO DAILY 09/14/18 [Last Taken 10/23] Sunitinib Malate [Sutent] 37.5 mg PO DAILY 09/14/18 [Last Taken 10/21/18] amLODIPine BESYLATE [Norvasc 10 mg (*)] 10 mg PO DAILY 09/14/18 [Last Taken 03/06] metFORMIN HCL [Glucophage 500 mg (*)] 1,000 mg PO BIDMEAL 09/14/18 [Last Taken 10/21/18] Levothyroxine [Synthroid 175 mcg (*)] 175 mcg PO DAILY06 10/23/18 [Last Taken ] Megestrol Acetate 800 mg PO DAILY 10/23/18 [Last Taken 10/23/18] Ondansetron [Ondansetron Odt] 8 mg PO Q8HRS PRN 10/23/18 [Last Taken 10/23/18] Potassium Cl [Klor-Con 20 meq (*)] 20 meq PO DAILY 10/23/18 [Last Taken 10/23/18 ] Prochlorperazine Maleate [Compazine 10mg (*)] 10 mg PO Q6HRS PRN 10/23/18 [Last Taken 10/23/18] I have personally reviewed and updated: family history, medical history - Past Medical History cancer, hypertension Additional medical history: Clear cell carcinoma, HLD, Hypothyroidism - Surgical History Additional surgical history: L AKA - Family History Additional family history: Denies family hx of cancer - Social History Smoking Status: Never smoked Review of Systems Review of Systems: ROS: 10pt was reviewed & negative except for what was stated in HPI & below Physical Exam Physical Exam: Temp Pulse Resp BP Pulse Ox 36.8 C 88 21 H 107/69 94 10/23/18 22:57 10/23/18 23:45 10/23/18 23:45 10/23/18 23:45 10/23/18 23:45 Constitutional: appears nourished, uncomfortable Eyes: PERRL, EOMI Ears, Nose, Mouth, Throat: moist mucous membranes, no oral mucosal ulcers Cardiovascular: regular rate and rhythym, no murmur, rub, or gallop Respiratory: no respiratory distress, clear to auscultation Gastrointestinal: tenderness (Epi-gastric, RUQ), No looney's sign, No guarding, No rebound, No distension Skin: warm, normal color Musculoskeletal: full muscle strength, other (C-collar in place; s/p L AKA) Neurologic: AAOx3, CN II-XII Intact Psychiatric: interacting appropriately, not anxious Lab Data & Imaging Review 10/23/18 21:45 10/23/18 21:45 WBC 12.12 10^3/uL (3.80-9.50) H 10/23/18 21:45 RBC 4.05 10^6/uL (4.40-6.38) L 10/23/18 21:45 Hgb 10.9 g/dL (13.7-17.5) L 10/23/18 21:45 Hct 33.4 % (40.0-51.0) L 10/23/18 21:45 MCV 82.5 fL (81.5-99.8) 10/23/18 21:45 MCH 26.9 pg (27.9-34.1) L 10/23/18 21:45 MCHC 32.6 g/dL (32.4-36.7) 10/23/18 21:45 RDW 21.6 % (11.5-15.2) H 10/23/18 21:45 Plt Count 533 10^3/uL (150-400) H 10/23/18 21:45 MPV 8.3 fL (8.7-11.7) L 10/23/18 21:45 Neut % (Auto) 86.9 % (39.3-74.2) H 10/23/18 21:45 Lymph % (Auto) 8.0 % (15.0-45.0) L 10/23/18 21:45 Rice % (Auto) 4.5 % (4.5-13.0) 10/23/18 21:45 Eos % (Auto) 0.0 % (0.6-7.6) L 10/23/18 21:45 Baso % (Auto) 0.1 % (0.3-1.7) L 10/23/18 21:45 Nucleat RBC Rel Count 0.4 % (0.0-0.2) H 10/23/18 21:45 Absolute Neuts (auto) 10.53 10^3/uL (1.70-6.50) H 10/23/18 21:45 Absolute Lymphs (auto) 0.97 10^3/uL (1.00-3.00) L 10/23/18 21:45 Absolute Monos (auto) 0.55 10^3/uL (0.30-0.80) 10/23/18 21:45 Absolute Eos (auto) 0.00 10^3/uL (0.03-0.40) L 10/23/18 21:45 Absolute Basos (auto) 0.01 10^3/uL (0.02-0.10) L 10/23/18 21:45 Absolute Nucleated RBC 0.05 10^3/uL (0-0.01) H 10/23/18 21:45 Immature Gran % 0.5 % (0.0-1.1) 10/23/18 21:45 Immature Gran # 0.06 10^3/uL (0.00-0.10) 10/23/18 21:45 PT 17.3 SEC (12.0-15.0) H 10/23/18 21:45 INR 1.40 (0.83-1.16) H 10/23/18 21:45 APTT 33.2 SEC (23.0-38.0) 10/23/18 21:45 VBG Lactic Acid 1.3 mmol/L (0.7-2.1) 10/23/18 23:45 Sodium 134 mEq/L (135-145) L 10/23/18 21:45 Potassium 3.7 mEq/L (3.5-5.2) 10/23/18 21:45 Chloride 101 mEq/L (97-110) 10/23/18 21:45 Carbon Dioxide 25 mEq/l (22-31) 10/23/18 21:45 Anion Gap 8 mEq/L (6-14) 10/23/18 21:45 BUN 27 mg/dL (7-23) H 10/23/18 21:45 Creatinine 1.6 mg/dL (0.7-1.3) H 10/23/18 21:45 Estimated GFR 46 10/23/18 21:45 Glucose 231 mg/dL (70-100) H 10/23/18 21:45 Calcium 7.6 mg/dL (8.5-10.4) L 10/23/18 21:45 Total Bilirubin 0.9 mg/dL (0.1-1.4) 10/23/18 21:45 Conjugated Bilirubin 0.6 mg/dL (0.0-0.5) H 10/23/18 21:45 Unconjugated Bilirubin 0.3 mg/dL (0.0-1.1) 10/23/18 21:45 AST 67 IU/L (17-59) H 10/23/18 21:45 ALT 34 IU/L (21-72) 10/23/18 21:45 Alkaline Phosphatase 173 IU/L (38-126) H 10/23/18 21:45 Total Protein 5.8 g/dL (6.3-8.2) L 10/23/18 21:45 Albumin 2.4 g/dL (3.5-5.0) L 10/23/18 21:45 Lipase 66 IU/L (23-300) 10/23/18 21:45 Imaging Review: Imaging Impressions Chest X-Ray 10/23/18 22:01 Impression: Poor inspiratory effort with mild atelectasis or less likely infiltrate at both lung bases. Abdomen/Pelvis CT 10/23/18 22:31 Impression: 1. Extensive osseous metastatic disease as above. 2. Moderate ascites. Stranding in the mesentery and omentum which could represent carcinomatosis. 3. Selection of bowel wall thickening in the colon at the splenic flexure which could be inflammatory or neoplastic. Adjacent soft tissue mass in the mesentery. 4. Enlarged lymph nodes in the left pelvis and proximal left thigh probably representing metastatic disease. 5. Mild bilateral pleural effusions. Atelectasis at both lung bases. Evidence of prior granulomatous disease. Results called and discussed with Armando Bardales MD at 10/23/2018 23:10. Assessment & Plan Assessment: 53 yo M with metastatic sarcoma presents with abdominal pain, vomiting, and diarrhea. Plan: 1. Abdominal pain, vomiting, diarrhea - Progressive symptoms present for 2 weeks. This could be due to oral chemotherapy sunitinib (diarrhea in 40-66%, vomiting in 19-39%), infectious process, or progressing malignancy. His CT scan demonstrates moderate ascites and stranding in the mesentery and omentum that could represent carcinomatosis; also seen is a thickened portion of colon near the splenic flexure. - Admit to SDU for close observation - CTX/Flagyl initially noting immunosuppression, hypotension, and elevated WBC - Will order diagnostic paracentesis to rule out SBP - Blood cultures pending - GI PCR ordered - If infectious work-up negative, may benefit from steroids 2. Hypotension - Hypovolemia vs. infectious; acute management as above. BP currently responding to fluids. - Antibiotics as above - S/p 4 L IVF; continue mIVF overnight with bolus PRN 3. LE - 2/2 dehydration in the setting of vomiting and diarrhea. - Repeat BMP after IVF 4. Normocytic anemia - Likely multifactorial from malignancy, chronic inflammation, and medication side-effects. - Monitor CBC 5. Metastatic sarcoma - With multiple complications; s/p L AKA, pathologic C4 fracture, diffuse osseous metastatic disease, and now with possible carcinomatosis per admission CT scan. his chemotherapy agent sunitinib was stopped 2 days prior to admission due to suspected side-effects. - Oncology consult 6. C4 pathologic fracture - Continue with C-collar. 7. DM - Continue oral agents. 8. HTN - Hold home meds in setting of hypotension, restart as indicated. 9. Hypothyroid - Continue LTX. Diet - Clears, mIVF, ADAT Code - Full Ppx - SCDs Dispo - Admit under inpatient status
[2018-10-24] MEDS: NS 1,000 ML IV SCH ×2 (01:00→09:26)
[2018-10-24] MEDS: LEVOTHYROXINE 175 MCG TAB PO SCH (06:27)
[2018-10-24] MEDS: ONDANSETRON 4 MG/2 ML VIAL IVP PRN (07:02)
[2018-10-24 07:17] LABS: PLATELET COUNT 418 10^3/uL (150-400)
[2018-10-24] MEDS: HYDROmorphONE/DILAUDID 1 MG/ML INJ IVP PRN ×3 (07:55→23:02)
--- NOTE | 2018-10-24 08:20 | PDMN ---
Medical Necessity Medical necessity: MCG: [facility] oncology: Pt. with PMHx met. sarcoma: pt presents with abd pain, V./ D progressive X 2 weeks, pt on oral chemo., recently stopped by Oncologist., CT shows moderate ascites and stranding in mesentery, with extensive osseous met. disease , bowel wall thickening in the colon , mild bilat. plueral effusions, pt also with hypotension, LE, normocytic anemia, anticipate > 2 MN ongoing med nec care.
[2018-10-24] MEDS: Dapagliflozin Propanediol [Farxiga] 10 MG PO SCH (09:31)
[2018-10-24] MEDS: metFORMIN HCL 500 MG TAB PO SCH ×2 (09:31→17:31)
--- NOTE | 2018-10-24 11:58 | ASMTCMCOM ---
CM Note CM Note Notes: Pt is a 53 yo M presents with hypotension and dehydration. 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 Pt lives in mobile home with 4 steps with his partner, Shireen. During rounds she expressed her concerns that she is unable to help him get up steps. They are looking into getting a ramp but may take about a month. Pt is resistant to help in the home but Shireen reports she needs help. CM provided education about PT/OT evaluations and that CM would continue to follow to ensure discharge needs are met. CM provided education about obtaining support from [email or web address], pt and Shireen were interested. CM to help identify how fund can be helpful and follow-up. Plan: TBD as pt progresses medically. Date Signed: 10/24/2018 11:58 AM Electronically Signed By:PURVI Cotton
[2018-10-24] MEDS ORDERED: D10W 1,000 ML IV PRN (12:22)
[2018-10-24] MEDS ORDERED: ALTEPLASE 2 MG VIAL IVP PRN (12:22)
--- NOTE | 2018-10-24 12:44 | GCON ---
INPATIENT ONCOLOGY CONSULTATION DATE OF CONSULTATION: 10/24/2018 REFERRING PHYSICIAN: José Miguel Sanford MD OUTPATIENT ONCOLOGIST: Dr. Ceci Moody REASON FOR CONSULTATION: Abdominal pain and colitis. 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 He was initially diagnosed with disease in the left leg in February 2017. Underwent resection with limb preservation. The tumor was high grade, measuring 10.5 cm, but there was no lymph node involvement. He received adjuvant radiation therapy. This fall, he developed a recurrence at the surgical site and had an [id number] amputation. Shortly following that, however, he developed evidence of multiple pulmonary and bone lesions, as well as left inguinal adenopathy. He then had a pathologic C4 fracture and was admitted to the hospital late August. No operative intervention was recommended and he was placed in a cervical collar. About 6 weeks ago, Dr. Moody started him on systemic therapy with Sutent 37.5 mg daily. He reports that within a week or two starting, he began to feel tired and developed diarrhea and abdominal pain. These symptoms have become progressively worse. He has not had a real meal since . He was seen by Dr. Moody in her office on October 21 and she attributed these symptoms to Sutent and it was discontinued; however, he continued to feel poorly. He came to the hospital last night for evaluation. GI pathogens panel was negative. A CT of the abdomen revealed some bowel wall thickening in the splenic flexure, as well as ascites, a soft tissue mass in the mesentery measuring 6.7 cm, and some enlarging lymph nodes in the left inguinal region. There is also some stranding in the mesentery and omentum, which could represent carcinomatosis. He is currently receiving IV fluids and empiric antibiotics. He feels about the same. PAST HISTORY: 1. Diabetes. 2. Hypertension. 3. Hypothyroidism. CURRENT MEDICATIONS: Include Lipitor, ceftriaxone, hydromorphone, Synthroid, metformin, Flagyl. ALLERGIES: He has no known drug allergies. FAMILY HISTORY: Noncontributory. SOCIAL HISTORY: He is a nonsmoker. He lives with his . REVIEW OF SYSTEMS: Aside from pertinent positives in the HPI, a 14-point review of systems was negative. EXAMINATION: VITAL SIGNS: Temperature was 36.6, blood pressure 96/61, heart rate 92, oxygen saturation 94% on room air. GENERAL: He was somewhat uncomfortable, but nontoxic appearing. HEENT/NECK: Neck in a cervical collar. His oropharynx is clear without lesions. LUNGS: Clear to auscultation bilaterally. CARDIAC: Regular rate and rhythm. No murmurs, gallops, rubs. ABDOMEN: Moderately distended with quiet bowel sounds. It was soft and there was no rebound or guarding. EXTREMITIES: Without edema. He is status post left [id number] amputation. LABORATORY DATA: White count 11.6, hemoglobin 10.2, platelets 418. Sodium 135 , potassium 3.9, chloride 107, bicarb 23, BUN 22, creatinine 1.1, calcium 6.5. Total bilirubin 1.1, AST 69, ALT 31, alkaline phosphatase 122, albumin 1.9. IMPRESSION: This is a 53-year-old man with metastatic clear cell sarcoma, now presenting with abdominal pain, diarrhea, and vomiting. These symptoms are likely due to the Sutent as these are known side effects and the drug is very hard for some patients to tolerate. In addition, he does appear unfortunately to have progressive disease in the abdomen and some of this may be contributing as well. Since the Sutent was just discontinued 3 days ago, it is hard to differentiate the two. There does not appear to be any evidence of a significant GI infection. RECOMMENDATIONS: 1. Supportive care, including IV fluids. We could give some consideration to the short-term use of total parenteral nutrition as the patient has not had adequate nutrition in almost 2 weeks. 2. Continue to hold the Sutent. 3. Could consider paracentesis to rule out spontaneous bacterial peritonitis, though I think that is unlikely to be at play here. 4. The patient is currently scheduled for a PET-CT scan to evaluate his response to Sutent. If he discharged from the hospital by that time, he should complete that scan. The CT scan is worrisome, however, for progression of disease. Thank for this consultation. We will continue to follow patient with you closely while he is in the hospital. /[id number]/MODL MTDD
[2018-10-24] MEDS ORDERED: D50W 25 GM/50 ML SYR IVP PRN (13:42)
[2018-10-24] MEDS ORDERED: NS BOLUS 1000 ML (Wide open) IV ONE (16:00)
--- NOTE | 2018-10-24 16:28 | HOSPPROG ---
Hospitalist Progress Note Assessment/Plan: 53 yo M with metastatic sarcoma presents with abdominal pain, vomiting, and diarrhea. Plan: # Abdominal pain, vomiting, diarrhea --progressive for 2 weeks, CT scan personally reviewed with ascites and findings concerning for carcinomatosis, GI pcr pending, plan for paracentesis tomorrow to eval for SBP--ctx/flagyl for now. In discussion with oncology this likely represents side effect of sunitinib # hypotension: has been fluid responsive thus far, presumably related to volume depletion, continue to monitor in SJE # le: pre renal and improved s/p IVF # malnutrition: patient has not been able to eat in nearly a month, will start TPN # normocytic anemia: due to anemia of chronic disease, monitoring # metastatic sarcoma: with associated pathologic fractures, diffuse osseous mets and likely carcinomatosis noted on CT imaging, appreciate oncology consult , prognosis poor # c-4 pathologic fracture: c collar in place # DM: continue home meds, SSI # HTN: holding home bp meds given hypotension # hypothyroid: continue Lt4 # IP status, high risk and will continue to monitor in SDU Subjective: no acute overnight events, patient notes that he is feeling a bit better, he still has lots of diarrhea, can't eat due to nausea and lack of any appetite Objective: Vital Signs Temp Pulse Resp BP Pulse Ox 36.6 C 94 18 86/58 L 96 10/24/18 09:30 10/24/18 15:48 10/24/18 15:48 10/24/18 15:48 10/24/18 15:48 Microbiology 10/24/18 01:45 Gastrointestinal Tract Panel (PCR) - Final Stool No Organism Detected By Pcr Laboratory Results 10/24/18 06:15 10/24/18 06:15 10/23/18 10/24/18 10/25/18 05:59 05:59 05:59 Intake Total 5050 Output Total 450 350 Balance 4600 -350 PT 17.3 SEC (12.0-15.0) H 10/23/18 21:45 INR 1.40 (0.83-1.16) H 10/23/18 21:45 awake alert chronically ill appearing anicteric op clear rrr no mrg cta b soft distended mild diffuse ttp ble edema warm dry well perfused oriented appropriate - Time Spent With Patient Time Spent with Patient: greater than 35 minutes Time Spent with Patient: Greater than 35 minutes spent on this patients care, greater than 50% of time spent counseling, educating, and coordinating care regarding the above mentioned plan. ICD10 Worksheet Patient Problems: Problems Problem Status Onset LE (acute kidney injury) Acute Dehydration Acute Diarrhea Acute Hypotension Acute Sarcoma Acute
[2018-10-24] MEDS: INSULIN LISPRO 100 UNIT/ML SC SCH (17:33)
[2018-10-24] MEDS: ATORVASTATIN CALCIUM 20 MG TAB PO SCH (22:00)
[2018-10-25] MEDS: NS 1,000 ML IV SCH (01:00)
[2018-10-25] MEDS: LEVOTHYROXINE 175 MCG TAB PO SCH (05:39)
[2018-10-25] MEDS: HYDROmorphONE/DILAUDID 1 MG/ML INJ IVP PRN ×3 (05:54→21:55)
[2018-10-25 06:07] LABS: INR 1.62 (0.83-1.16); PROTIME(PATIENT) 19.4 SEC (12.0-15.0)
[2018-10-25 06:21] LABS: PLATELET COUNT 367 10^3/uL (150-400)
[2018-10-25] MEDS: ONDANSETRON 4 MG/2 ML VIAL IVP PRN (06:31)
--- NOTE | 2018-10-25 09:02 | HOSPPROG ---
Hospitalist Progress Note Assessment/Plan: 53 yo M with metastatic sarcoma presents with abdominal pain, vomiting, and diarrhea. Plan: # Abdominal pain, vomiting, diarrhea, ascites --progressive for 2 weeks, CT scan personally reviewed with ascites and findings concerning for carcinomatosis , GI pcr negative. In discussion with oncology this likely represents side effect of sunitinib. Has had 4L ascitic fluid removed today with gs/culture pending but likely this does not represent SBP. Has been on ctx/flagyl but will switch to zosyn as below. # hypotension: has been fluid responsive thus far, presumably related to volume depletion, continue to monitor in SDU for now # bacturia: > 100K enterococcus noted on urine culture with completely normal UA , no urinary sxs, but given ongoing hypotension for unclear reasons will change abx to zosyn for now and monitor final s/s # le: pre renal and improved s/p IVF # malnutrition: patient has not been able to eat in nearly a month, will start TPN # normocytic anemia: due to anemia of chronic disease, monitoring # metastatic sarcoma: with associated pathologic fractures, diffuse osseous mets and likely carcinomatosis noted on CT imaging, appreciate oncology consult , prognosis poor # c-4 pathologic fracture: c collar in place # DM: continue home meds, SSI # HTN: holding home bp meds given hypotension # hypothyroid: continue Lt4 # IP status, high risk and will continue to monitor in SDU # FC--this will need to be addressed, family/patient is not quite ready but goals of care needs to be addressed going forward Subjective: no significant overnight events, patient feeling a bit better s/p paracentesis but then nauseous as well Objective: Vital Signs Temp Pulse Resp BP Pulse Ox 37.2 C 97 12 91/57 L 93 10/25/18 05:44 10/25/18 07:28 10/25/18 07:28 10/25/18 07:28 10/25/18 07:28 Microbiology 10/24/18 01:45 Gastrointestinal Tract Panel (PCR) - Final Stool No Organism Detected By Pcr Laboratory Results 10/25/18 05:30 10/25/18 05:30 10/24/18 10/25/18 10/26/18 05:59 05:59 05:59 Intake Total 5050 3693 Output Total 450 1200 Balance 4600 2493 PT 19.4 SEC (12.0-15.0) H 10/25/18 05:30 INR 1.62 (0.83-1.16) H 10/25/18 05:30 awake alert chronically ill appearing anicteric op clear rrr no mrg cta b soft distended mild diffuse ttp ble edema warm dry well perfused oriented appropriate ICD10 Worksheet Patient Problems: Problems Problem Status Onset LE (acute kidney injury) Acute Dehydration Acute Diarrhea Acute Hypotension Acute Sarcoma Acute
[2018-10-25] MEDS: metFORMIN HCL 500 MG TAB PO SCH ×3 (09:06→18:29)
[2018-10-25] MEDS: Dapagliflozin Propanediol [Farxiga] 10 MG PO SCH (09:06)
[2018-10-25] MEDS: INSULIN LISPRO 100 UNIT/ML SC SCH ×3 (09:09→18:25)
[2018-10-25] MEDS ORDERED: LIDOCAINE 1% 300 MG/30 ML SDV ONE (09:59)
[2018-10-25] MEDS ORDERED: POTASSIUM Cl (KCl) 10 MEQ in D5W 50 ML IV SCH (12:00)
[2018-10-25] MEDS ORDERED: ALBUMIN 25% 200 ML IV ONE (12:18)
[2018-10-25] MEDS: POTASSIUM Cl (KCl) 50 ML IV SCH ×3 (12:21→14:27)
[2018-10-25] MEDS: ALBUMIN 25% 100 ML IV ONE ×2 (13:37→14:27)
[2018-10-25] MEDS: FAMOTIDINE 20 MG TAB PO SCH ×2 (13:39→21:34)
--- NOTE | 2018-10-25 15:25 | ASMTCMCOM ---
CM Note CM Note Notes: CM met with Shireen, pt's partner who said people are coming to give estimate on cost of Ramp for their house w/4 steps. Shireen is to let CM know the cost of Ramp and CM will contact [employer] to determine how much fund can provide support. Shireen informed it probably won't be full cost of ramp, but may be some. CM to then submit referral to [employer]. CM provided support to Shireen. 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 She reports she has been putting her needs on the backburner. CM provided support and education on supports and encouraged Shireen to let staff know if she needs additional support. CM to follow. Plan: TBD Date Signed: 10/25/2018 03:24 PM Electronically Signed By:PURVI Cotton
[2018-10-25] MEDS: PIPERACILLIN/TAZO 3.375 GM/DEX 50 ML IV SCH ×2 (15:26→21:34)
--- NOTE | 2018-10-25 16:17 | SOAPPROG ---
SOAP Progress Note Assessment/Plan: Assessment: 1. metastatic clear cell sarcoma 2. ascites 3. anorexia, abdominal boating,diarrhea, ? drug related versus tumor Plan:Follow for now, starting tpn, am concerned his disease is rapidly progressing 10/25/18 16:14 Subjective: less bloating post paracentesis Objective: Vital Signs Temp Pulse Resp BP Pulse Ox 98.6 F 100 17 90/62 L 98 10/25/18 16:00 10/25/18 16:00 10/25/18 16:00 10/25/18 16:00 10/25/18 16:00 Microbiology 10/25/18 11:30 Body Fluid Culture - Final Peritoneal Fluid - Aspirate Laboratory Results 10/25/18 05:30 10/25/18 05:30 10/24/18 10/25/18 10/26/18 05:59 05:59 05:59 Intake Total 5050 3693 Output Total 450 1200 200 Balance 4600 2493 -200 PT 19.4 SEC (12.0-15.0) H 10/25/18 05:30 INR 1.62 (0.83-1.16) H 10/25/18 05:30 ICD10 Worksheet Patient Problems: Problems Problem Status Onset LE (acute kidney injury) Acute Dehydration Acute Diarrhea Acute Hypotension Acute Sarcoma Acute
[2018-10-25] MEDS: ATORVASTATIN CALCIUM 20 MG TAB PO SCH (21:34)
[2018-10-25] MEDS: TPN 1 EA BAG IV SCH (21:34)
[2018-10-26] MEDS: PIPERACILLIN/TAZO 3.375 GM/DEX 50 ML IV SCH ×3 (02:22→16:17)
[2018-10-26] MEDS: NS 1,000 ML IV SCH ×2 (02:28→20:07)
[2018-10-26 04:00] LABS: PLATELET COUNT 384 10^3/uL (150-400)
[2018-10-26 04:08] LABS: INR 1.75 (0.83-1.16); PROTIME(PATIENT) 20.5 SEC (12.0-15.0)
[2018-10-26] MEDS: HYDROmorphONE/DILAUDID 1 MG/ML INJ IVP PRN ×4 (04:55→20:07)
[2018-10-26] MEDS: LEVOTHYROXINE 175 MCG TAB PO SCH (06:36)
[2018-10-26] MEDS: POTASSIUM Cl (KCl) 50 ML IV SCH ×3 (08:07→13:15)
[2018-10-26] MEDS: INSULIN LISPRO 100 UNIT/ML SC SCH (08:10)
[2018-10-26] MEDS: Dapagliflozin Propanediol [Farxiga] 10 MG PO SCH (08:22)
[2018-10-26] MEDS: metFORMIN HCL 500 MG TAB PO SCH (08:22)
[2018-10-26] MEDS: FAMOTIDINE 20 MG TAB PO SCH (10:11)
[2018-10-26] MEDS ORDERED: D50W 25 GM/50 ML SYR IVP PRN (10:56)
--- NOTE | 2018-10-26 11:21 | HOSPPROG ---
Hospitalist Progress Note Assessment/Plan: 53 yo M with metastatic sarcoma presents with abdominal pain, vomiting, and diarrhea. Plan: # Abdominal pain, vomiting, diarrhea, ascites -- progressive for 2 weeks, CT scan personally reviewed, ascites and findings concerning for carcinomatosis. Some concern that chemo agent was cause, but pain persists which raises concern for rapidly progressive dz. GI pcr negative. S/P para, 4L ascitic fluid removed with Cx ngtd. Had been on ceftriaxone/flagyl, now on zosyn -cont zosyn -symptom management, add fentanyl patch for pain control, with bowel regimen # hypotension: improved with IVF's # UTI: > 100K enterococcus on UCx, ampicillin sensitive -change from zosyn to ampicillin, favor IV tx given poor oral tolerance # le: Cr back up this am -increase TPN plus IVF's to 150 / hr # malnutrition: now on TPN # normocytic anemia: due to anemia of chronic disease, monitoring # metastatic sarcoma: pathologic fractures, diffuse osseous mets and likely carcinomatosis noted on CT imaging, appreciate oncology consult, prognosis poor -goals of care discussion with pt and girlfriend, who is MDPOA. Pt wishes to get well enough to d/c by thursday for outpt PET and f/u with Dr. Moody in [place] for next treatment option # c-4 pathologic fracture: c collar in place # DM: continue home meds, SSI # HTN: holding home bp meds given hypotension # hypothyroid: continue Lt4 # dvt pplx: high risk, start lovenox # IP status, high risk and will continue to monitor in SDU # Code status -- Full code, pt not ready to address code status, but willing to discuss goals of care with palliative team, order placed Subjective: Pt c/o abdominal pain/cramping. Diarrhea is better. He is able to drink some water today, couldn't tolerate that yesterday. Wants to try a smoothie. No fevers. No N/V. Objective: Vital Signs Temp Pulse Resp BP Pulse Ox 36.4 C 92 12 97/67 L 94 10/26/18 08:00 10/26/18 08:00 10/26/18 08:00 10/26/18 08:00 10/26/18 08:00 Microbiology 10/25/18 11:30 Gram Stain - Final Peritoneal Fluid - Aspirate Body Fluid Culture - Final Laboratory Results 10/26/18 03:45 10/26/18 03:45 10/25/18 10/26/18 10/27/18 05:59 05:59 05:59 Intake Total 3693 1924 Output Total 1200 550 Balance 2493 1374 PT 20.5 SEC (12.0-15.0) H 10/26/18 03:45 INR 1.75 (0.83-1.16) H 10/26/18 03:45 - Physical Exam Constitutional: no apparent distress Eyes: PERRL Ears, Nose, Mouth, Throat: moist mucous membranes Cardiovascular: regular rate and rhythym Respiratory: no respiratory distress, clear to auscultation Gastrointestinal: other (soft, mod distention, mild diffuse TTP, no r/r/g, hypoactive BS) Skin: warm Musculoskeletal: full muscle strength Neurologic: AAOx3 Psychiatric: interacting appropriately ICD10 Worksheet Patient Problems: Problems Problem Status Onset LE (acute kidney injury) Acute Dehydration Acute Diarrhea Acute Hypotension Acute Sarcoma Acute
[2018-10-26] MEDS ORDERED: BISACODYL 10 MG SUPP PR PRN (12:23)
[2018-10-26] MEDS ORDERED: POLYETHYLENE GLYCOL 3350 17 GM PKT PO PRN (12:23)
[2018-10-26] MEDS ORDERED: MAGNESIUM HYDROXIDE 30 ML UDCUP PO PRN (12:23)
[2018-10-26] MEDS ORDERED: LACTULOSE 20 GM/30 ML UDCUP PO PRN (12:23)
[2018-10-26] MEDS ORDERED: fentaNYL 12 MCG PATCH TD SCH (12:30)
[2018-10-26] MEDS ORDERED: CALCIUM GLUCONATE 2 GM in D5W 50 ML IV ONE (12:30)
--- NOTE | 2018-10-26 12:48 | SOAPPROG ---
SOAP Progress Note Assessment/Plan: Assessment: 1. metastatic clear cell sarcoma 2. ascites 3. anorexia, abdominal boating,diarrhea, ? drug related versus tumor Plan:Follow for now, starting tpn, am concerned his disease is rapidly progressing, await cytology. He remains quite hopeful, wants to get scan in [place] on thursday10/25/18 16:14 10/26/18 12:46 Objective: Vital Signs Temp Pulse Resp BP Pulse Ox 97.5 F 96 12 86/72 L 95 10/26/18 08:00 10/26/18 11:33 10/26/18 11:33 10/26/18 11:33 10/26/18 11:33 Microbiology 10/24/18 01:45 Urine Culture - Final Urine,Clean Catch Enterococcus Faecalis 10/25/18 11:30 Gram Stain - Final Peritoneal Fluid - Aspirate Body Fluid Culture - Final Laboratory Results 10/26/18 03:45 10/26/18 03:45 10/25/18 10/26/18 10/27/18 05:59 05:59 05:59 Intake Total 3693 1924 Output Total 1200 550 Balance 2493 1374 PT 20.5 SEC (12.0-15.0) H 10/26/18 03:45 INR 1.75 (0.83-1.16) H 10/26/18 03:45 ICD10 Worksheet Patient Problems: Problems Problem Status Onset LE (acute kidney injury) Acute Dehydration Acute Diarrhea Acute Hypotension Acute Sarcoma Acute
[2018-10-26] MEDS: INSULIN REGULAR, HUMAN 100 UNIT/1 ML VIAL STANDARD SC SCH ×2 (13:06→18:08)
[2018-10-26] MEDS: ENOXAPARIN 40 MG/0.4 ML SYR SC SCH (16:18)
[2018-10-26] MEDS: ONDANSETRON 4 MG/2 ML VIAL IVP PRN (18:44)
[2018-10-26] MEDS: SENNOSIDES/DOCUSATE SODIUM TAB PO SCH (21:17)
[2018-10-26] MEDS: TPN 1 EA BAG IV SCH (21:17)
[2018-10-26] MEDS: ATORVASTATIN CALCIUM 20 MG TAB PO SCH (21:17)
[2018-10-26] MEDS: AMPICILLIN SODIUM 2 GM in NS 100 ML IV SCH (22:06)
[2018-10-27] MEDS: HYDROmorphONE/DILAUDID 1 MG/ML INJ IVP PRN ×6 (00:16→23:31)
[2018-10-27] MEDS: INSULIN REGULAR, HUMAN 100 UNIT/1 ML VIAL STANDARD SC SCH ×5 (00:18→23:38)
[2018-10-27] MEDS: AMPICILLIN SODIUM 2 GM in NS 100 ML IV SCH ×2 (04:09→09:18)
[2018-10-27] MEDS: NS 1,000 ML IV SCH ×2 (06:09→20:03)
[2018-10-27] MEDS: LEVOTHYROXINE 175 MCG TAB PO SCH (06:18)
[2018-10-27] MEDS: ACETAMINOPHEN 325 MG TAB PO PRN ×2 (06:25→21:51)
[2018-10-27 06:42] LABS: PLATELET COUNT 409 10^3/uL (150-400)
[2018-10-27 06:52] LABS: INR 1.4 (0.83-1.16); PROTIME(PATIENT) 17.3 SEC (12.0-15.0)
--- NOTE | 2018-10-27 08:47 | HOSPPROG ---
Hospitalist Progress Note Assessment/Plan: 53 yo M with metastatic sarcoma presents with abdominal pain, vomiting, and diarrhea. Plan: # Abdominal pain, vomiting, diarrhea, ascites -- progressive for 2 weeks, CT scan personally reviewed, ascites and findings concerning for carcinomatosis. Some concern that chemo agent was cause, but pain persists which raises concern for rapidly progressive dz. GI pcr negative. S/P para, 4L ascitic fluid removed with Cx ngtd. Had been on ceftriaxone/flagyl. -will request ID consult regarding need for intra-abdominal coverage -symptom management, added fentanyl patch for pain control, with bowel regimen -may warrant repeat paracentesis, u/s today to organ tuner for reaccumulation of ascites -requested cytology be added on to ascitic fluid # hypotension: improved with IVF's # UTI: > 100K enterococcus on UCx, ampicillin sensitive. Ascitic fluid Cx neg -changed from zosyn to ampicillin, favor IV tx given poor oral tolerance # LE: Cr on the rise, up to 2.5 from 1.6 with poor uop, note volume up and low albumin, likely intravascularly dry. has been on TPN plus IVF's for 150/hr -check u/s -albumin boluses q6h, consider lasix given wt up (await FeNa data) -send urine Na and urine Cr to calculate FeNa # malnutrition: on TPN -pt willing to consider feeding tube, but not a good candidate for surgical peg or j-tube with ascites and possible distorted anatomy -may be able to dc home with PICC and TPN # normocytic anemia: due to anemia of chronic disease, monitoring # metastatic sarcoma: pathologic fractures, diffuse osseous mets and likely carcinomatosis noted on CT imaging, appreciate oncology consult, prognosis poor -again, had goals of care discussion with pt and girlfriend, who is MDPOA. Pt still hopeful for further tx by [facility] oncologist and MD Haskins, but recognizes may need to reconsider approach if progressive cancer. Palliative care consult today. # c-4 pathologic fracture: c collar in place # DM: increase insulin in TPN # HTN: holding home bp meds given hypotension # hypothyroid: continue Lt4 # FEN: bolus Calcium, check ionized Ca # dvt pplx: lovenox # IP status, high risk and will continue to monitor in SDU. 45 minutes spent at bedside with pt and SO discussing tx plan and goals of care # Code status -- Full code, pt not ready to address code status, but willing to discuss goals of care with palliative team, order placed Subjective: Pt doing ok, hasn't really tolerated any food, but taking liquids. No fevers. Pain is better controlled. Little uop overnight. No N/V. Objective: Vital Signs Temp Pulse Resp BP Pulse Ox 36.6 C 102 H 20 95/72 L 97 10/27/18 08:00 10/27/18 08:00 10/27/18 08:00 10/27/18 08:00 10/27/18 08:00 Microbiology 10/25/18 11:30 Gram Stain - Final Peritoneal Fluid - Aspirate Body Fluid Culture - Final 10/24/18 01:45 Urine Culture - Final Urine,Clean Catch Enterococcus Faecalis Laboratory Results 10/27/18 06:15 10/27/18 06:15 10/26/18 10/27/18 10/28/18 05:59 05:59 05:59 Intake Total 1924 3406 Output Total 550 425 Balance 1374 2981 PT 17.3 SEC (12.0-15.0) H 10/27/18 06:15 INR 1.40 (0.83-1.16) H 10/27/18 06:15 - Physical Exam Constitutional: no apparent distress Eyes: PERRL Ears, Nose, Mouth, Throat: moist mucous membranes Cardiovascular: regular rate and rhythym Respiratory: no respiratory distress, clear to auscultation Gastrointestinal: distension (soft, mod distention, mild ttp, no r/r/g, +BS) Skin: warm Musculoskeletal: full muscle strength Neurologic: AAOx3 Psychiatric: interacting appropriately ICD10 Worksheet Patient Problems: Problems Problem Status Onset LE (acute kidney injury) Acute Dehydration Acute Diarrhea Acute Hypotension Acute Sarcoma Acute
[2018-10-27] MEDS: ENOXAPARIN 40 MG/0.4 ML SYR SC SCH (09:18)
[2018-10-27] MEDS: SENNOSIDES/DOCUSATE SODIUM TAB PO SCH ×2 (09:19→21:17)
--- NOTE | 2018-10-27 09:35 | ASMTCMCOM ---
CM Note CM Note Notes: A family meeting was held yesterday for Patient. In attendance were Shireen, patient's girlfriend/partner, Ilana, nurse commercial development manager, chaplain Michell, and Ev, case management specialist. Shireen states she is MDPOA but they gave the paperwork to MD Haskins and do not have a copy at home. It was decided, we would redo the paperwork since it will be more efficient than signing releases and requesting records. Shireen states she is overwhelmed with managing care for Brian as a girlfriend instead of a . She has many concerns the family will ask her to leave when he is dying since they have asked her to leave a lot in the past when she has been caring for Brian during hospitalizations. Shireen was assured that if she is MDPOA, she has rights to remain with the patient and no one will have the authority to ask her to leave. Shireen also was concerned that the oncologists speak more frankly to Brian as she feels he is in denial. Shireen did say patient prefers a gentler style of communication and has a difficult time with overly direct approaches. But she feels he needs to be more in touch with reality for planning purposes. Shireen states Brian is working on getting a ramp for the trailor so he can access the entrance with his wheelchair. We stated we would look into the "[employer]" to see if they can help pay for it. Shireen is struggling with Brian not wanting her to talk to anyone about personal information and the difficult positions this puts her in when trying to resolve problems. Discussed ways she can manage information and still resolve problems, including getting ideas and support from a cancer support group for caretakers. Shireen was interested and the case management specialist will get her on the email list so she will be notified for the next group in November.Shireen also asked about Palliative Care and Michell answered her questions. Shireen states she does think they want a Palliative Care consult.The next steps established in the meeting are:sign Shireen up for the support group, 2)redo the MDPOA paperwork, 3) set up a palliative care consult, 4)check into the "[employer]" to assist patient with getting the ramp built for access. Shireen was informed she can request a family meeting whenever she feels she needs one. CM will also continue to check in with her regarding her needs and to provide support.CM will follow. Date Signed: 10/27/2018 09:34 AM Electronically Signed By:Ev Bradshaw LCSW
[2018-10-27] MEDS: Dapagliflozin Propanediol [Farxiga] 10 MG PO SCH (10:51)
[2018-10-27] MEDS: ALBUMIN 25% 100 ML IV SCH ×4 (10:56→23:31)
[2018-10-27] MEDS ORDERED: CALCIUM GLUCONATE 2 GM in D5W 50 ML IV ONE (11:30)
--- NOTE | 2018-10-27 13:37 | SOAPPROG ---
SOAP Progress Note Assessment/Plan: Assessment: 1. metastatic clear cell sarcoma 2. ascites 3. anorexia, abdominal boating,diarrhea, ? drug related versus tumor 4. increasing creatinine Plan:I discussed overall situation, which is increasingly dire, and I think he is beginning to understand this. He asked that I contact his primary oncologist , Dr Moody and will attempt to do so 10/25/18 16:14 10/26/18 12:46 10/27/18 13:34 Subjective: Tired, increasing abdominal distension Objective: Vital Signs Temp Pulse Resp BP Pulse Ox 96.6 F L 100 14 93/62 L 95 10/27/18 11:48 10/27/18 11:48 10/27/18 11:48 10/27/18 11:48 10/27/18 11:48 Microbiology 10/25/18 11:30 Gram Stain - Final Peritoneal Fluid - Aspirate Body Fluid Culture - Final 10/24/18 01:45 Urine Culture - Final Urine,Clean Catch Enterococcus Faecalis Laboratory Results 10/27/18 06:15 10/27/18 06:15 10/26/18 10/27/18 10/28/18 05:59 05:59 05:59 Intake Total 1924 3406 Output Total 550 425 Balance 1374 2981 PT 17.3 SEC (12.0-15.0) H 10/27/18 06:15 INR 1.40 (0.83-1.16) H 10/27/18 06:15 Physical Exam - Physical Exam General Appearance: alert, moderate distress Cardiac/Chest: regular rate, rhythm Abdomen: normal bowel sounds, ascites ICD10 Worksheet Patient Problems: Problems Problem Status Onset LE (acute kidney injury) Acute Dehydration Acute Diarrhea Acute Hypotension Acute Sarcoma Acute
[2018-10-27] MEDS ORDERED: FUROSEMIDE 20 MG/2 ML VIAL IVP ONE (13:51)
[2018-10-27] MEDS ORDERED: CALCIUM CARBONATE 500 MG CHEWABLE TAB PO PRN (19:36)
[2018-10-27] MEDS: TPN 1 EA BAG IV SCH (21:17)
[2018-10-27] MEDS: ATORVASTATIN CALCIUM 20 MG TAB PO SCH (21:17)
[2018-10-27] MEDS: oxyCODONE IR 5 MG TAB PO PRN (22:58)
[2018-10-28] MEDS: ALBUMIN 25% 100 ML IV SCH ×4 (05:32→23:37)
[2018-10-28] MEDS: INSULIN REGULAR, HUMAN 100 UNIT/1 ML VIAL STANDARD SC SCH ×3 (05:35→18:13)
[2018-10-28] MEDS: LEVOTHYROXINE 175 MCG TAB PO SCH (05:37)
[2018-10-28] MEDS: NS 1,000 ML IV SCH ×2 (05:41→20:12)
[2018-10-28 07:43] LABS: PLATELET COUNT 365 10^3/uL (150-400)
[2018-10-28] MEDS: oxyCODONE IR 5 MG TAB PO PRN ×2 (08:08→14:01)
--- NOTE | 2018-10-28 08:59 | HOSPPROG ---
Hospitalist Progress Note Assessment/Plan: 53 yo M with metastatic sarcoma presents with abdominal pain, vomiting, diarrhea and ascites. It seems he has rapidly progressing aggressive cancer and he has opted for hospice. Plan: # Abdominal pain, vomiting, diarrhea, ascites -- CT scan with ascites and findings concerning for carcinomatosis. Consideration given to chemo agent as cause, but persistent pain and rapidly reaccumulating ascites raises concern for progressive dz. GI pcr negative. S/P para, 4L ascitic fluid removed with Cx ngtd. Had been on ceftriaxone/flagyl x2 d prior to tap, note neutrophilic predominant ascitic fluid. -discussed atbx coverage with ID, will change back to Ceftriaxone plus Flagyl , will d/c upon transfer to hospice -symptom management, added fentanyl patch for pain control, with bowel regimen, prn dilaudid for pain, can transition to roxanol at dc # Ascites - suspect malignant ascites, s/p para with rapid reaccumulation, rising Cr prevents ongoing use of diuretics -may warrant repeat paracentesis for palliative purposes, u/s yest showed mod recurrent ascites, consider holly drain -requested cytology be added on to ascitic fluid # hypotension: improved with IVF's # UTI: > 100K enterococcus on UCx, but totally neg UA and no urinary symptoms, ID suspects colonization thus will not direct tx at this organism # LE: Cr on the rise, up to 3.6 from 1.6 with poor uop, note volume up and low albumin, likely intravascularly dry. has been on TPN plus IVF's for 150/hr plus albumin q6h. FeNa 0.1% suggesting pre-renal. -u/s neg for obstruction -cont albumin boluses q6h -renal consult appreciated, pt has declined further workup and wants to stop lab draws # malnutrition: on TPN -not a good candidate for surgical peg or j-tube with ascites and probable distorted anatomy -likely d/c tpn upon transfer to hospice, will discuss prior to d/c # normocytic anemia: due to anemia of chronic disease, monitoring # metastatic sarcoma: pathologic fractures, diffuse osseous mets and likely carcinomatosis noted on CT imaging, appreciate oncology consult, prognosis poor -again, had goals of care discussion with pt and girlfriend, who is MDPOA. Pt had talk with Dr. Moody and Dr. Dc and is realizing he doesn't have further treatment options and is requesting hospice # c-4 pathologic fracture: c collar in place # DM: increase insulin in TPN # HTN: holding home bp meds given hypotension # hypothyroid: continue Lt4 # FEN: bolus Calcium, following ionized Ca # dvt pplx: lovenox # IP status, high risk and will continue to monitor in SDU. 45 minutes spent at bedside with pt and SO discussing tx plan and goals of care # Code status -- Full code, will readdress prior to tx to hospice # dispo / care goals - cont inpt, hospice consult today Subjective: Pt had a comfortable night, no pain. No N/V. He is not taking any po. He wants hospice and no further labs draws. Objective: Vital Signs Temp Pulse Resp BP Pulse Ox 36.6 C 93 14 101/83 H 97 10/28/18 07:45 10/28/18 07:45 10/28/18 07:45 10/28/18 07:45 10/28/18 07:45 Microbiology 10/25/18 11:30 Gram Stain - Final Peritoneal Fluid - Aspirate Body Fluid Culture - Final Laboratory Results 10/28/18 07:25 10/27/18 10/28/18 10/29/18 05:59 05:59 05:59 Intake Total 3406 3722 Output Total 425 140 Balance 2981 3582 PT 17.3 SEC (12.0-15.0) H 10/27/18 06:15 INR 1.40 (0.83-1.16) H 10/27/18 06:15 - Physical Exam Constitutional: no apparent distress Eyes: PERRL Ears, Nose, Mouth, Throat: moist mucous membranes Cardiovascular: regular rate and rhythym Respiratory: no respiratory distress, reduced air movement Gastrointestinal: other (soft, moderate distention, no r/r/g, +BS) Skin: warm Musculoskeletal: full muscle strength Neurologic: AAOx3 Psychiatric: interacting appropriately ICD10 Worksheet Patient Problems: Problems Problem Status Onset LE (acute kidney injury) Acute Dehydration Acute Diarrhea Acute Hypotension Acute Sarcoma Acute
[2018-10-28] MEDS: ENOXAPARIN 40 MG/0.4 ML SYR SC SCH (09:57)
[2018-10-28] MEDS: SENNOSIDES/DOCUSATE SODIUM TAB PO SCH ×2 (10:00→23:38)
[2018-10-28] MEDS: Dapagliflozin Propanediol [Farxiga] 10 MG PO SCH (10:00)
[2018-10-28] MEDS ORDERED: CALCIUM GLUCONATE 1 GM in D5W 50 ML IV ONE (12:00)
--- NOTE | 2018-10-28 13:11 | PDCONSULT ---
Inspector And Hand Packager Note: Assessment/Plan: LE: pt with normal renal function at baseline, had LE on presentation that improved with IVFs with Cr down to 1.2, now again up in the past couple days to 3.6 with decreased UOP. Appears prerenal with low urine sodium, likely due to persistent hypotension along with 4.1L paracentesis done just before rise in Cr. Renal US done yesterday with no concerning findings. - I had a long discussion with pt about his renal function as well as further testing. - Pt stated that given his current overall state and plans to go to hospice, he is not interested in further testing or treatment besides keeping him comfortable. - With his goals of care in mind, will d/c all further lab testing per his request. - Ok to continue IVFs, would consider decreasing NS and continuing albumin. - Ok to do paracentesis as needed for comfort. Hypotension: continue to support with IVFs as needed. Thank you for the interesting consult. Nephrology will sign off at this time, please call if you have any additional questions or concerns. H & P Stated Complaint: Abd cramping, n/v/d x12 days Time Seen by Provider: 10/23/18 22:01 HPI/ROS: HPI: Mr. Wood is a 53 yo M with h/o metastatic sarcoma, HTN, DM, who presented on with complaints of N/V/D. He states that he diarrhea had been going on for two weeks, the N/V for about a week prior to presentation. It is thought his symptoms were caused by his chemotherapy. His Cr on presentation was 1.6, baseline from 08/2018 was 0.6 His SBP has mostly ranged in 90s since admission , occasionally dropping down further. He has been getting NS daily since admission, Cr initially came down to 1.1. On 10/25/17 he got a 4.1L paracentesis done, and since then Cr has steadily increased, up to 3.6 today. His BP had remained low but today SBP is finally up to 100s. He also has gotten albumin since yesterday. He had a renal US done yesterday with no concerning findings, and urine sodium yesterday low at <5. Pt had discussion with oncologist yesterday about severity of his disease, and he has since opted for hospice. He has no dyspnea, no pain currently, does have some discomfort from distended abdomen, seems to be reaccumulating ascites. 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, leg surgery March 2017 , partial R lobectomy 08/13/18, hypothyroid - Family History Significant Family History: No pertinent family hx - Social History Smoking Status: Never smoked - Physical Exam Exam: General: alert and oriented, no acute distress Eyes: EOMI, PERRL OP: Clear, MMM Neck: in neck brace CV: RRR, no edema RLE Resp: CTA bilat, nonlabored respirations Abd; Soft, distended, +ascites, NTTP Neuro: CN II-XII Grossly intact, no asterixis Psych: cooperative, appropriate mood and affect MSK: s/p R BKA Constitutional: Initial Vital Signs O2 Sat (%) 96 10/23/18 21:40 O2 Delivery Mode Nasal Cannula O2 (L/minute) 3 Allergies/Adverse Reactions: No Known Allergies Allergy (Verified 10/23/18 21:42) Home Medications: Medication Instructions Recorded Acetaminophen [Tylenol ES 500 mg 1,000 mg PO Q6 PRN 09/14/18 (*)] Atorvastatin Calcium [Lipitor 20 20 mg PO HS 09/14/18 mg (*)] Dapagliflozin Propanediol [Farxiga] 10 mg PO DAILY 09/14/18 Hydrochlorothiazide [HCTZ (*)] 25 mg PO DAILY 09/14/18 Ibuprofen [Motrin (*)] 400 mg PO Q6H PRN 09/14/18 Losartan Potassium [Cozaar 50 mg 100 mg PO DAILY 09/14/18 (*)] Sunitinib Malate [Sutent] 37.5 mg PO DAILY 09/14/18 amLODIPine BESYLATE [Norvasc 10 mg 10 mg PO DAILY 09/14/18 (*)] metFORMIN HCL [Glucophage 500 mg 1,000 mg PO BIDMEAL 09/14/18 (*)] oxyCODONE IR [Oxycodone Ir (*)] 5 - 10 mg PO Q3HRS PRN #30 tab 09/16/18 Levothyroxine [Synthroid 175 mcg 175 mcg PO DAILY06 10/23/18 (*)] Megestrol Acetate 800 mg PO DAILY 10/23/18 Ondansetron [Ondansetron Odt] 8 mg PO Q8HRS PRN 10/23/18 Potassium Cl [Klor-Con 20 meq (*)] 20 meq PO DAILY 10/23/18 Prochlorperazine Maleate 10 mg PO Q6HRS PRN 10/23/18 [Compazine 10mg (*)] Lab and Imaging 10/28/18 07:25 10/28/18 07:25 WBC 15.49 10^3/uL (3.80-9.50) H 10/28/18 07:25 RBC 3.47 10^6/uL (4.40-6.38) L 10/28/18 07:25 Hgb 9.3 g/dL (13.7-17.5) L 10/28/18 07:25 Hct 29.2 % (40.0-51.0) L 10/28/18 07:25 MCV 84.1 fL (81.5-99.8) 10/28/18 07:25 MCH 26.8 pg (27.9-34.1) L 10/28/18 07:25 MCHC 31.8 g/dL (32.4-36.7) L 10/28/18 07:25 RDW 24.5 % (11.5-15.2) H 10/28/18 07:25 Plt Count 365 10^3/uL (150-400) 10/28/18 07:25 MPV 9.2 fL (8.7-11.7) 10/28/18 07:25 Neut % (Auto) 90.5 % (39.3-74.2) H 10/28/18 07:25 Lymph % (Auto) 5.6 % (15.0-45.0) L 10/28/18 07:25 [place] % (Auto) 3.0 % (4.5-13.0) L 10/28/18 07:25 Eos % (Auto) 0.0 % (0.6-7.6) L 10/28/18 07:25 Baso % (Auto) 0.1 % (0.3-1.7) L 10/28/18 07:25 Nucleat RBC Rel Count 0.3 % (0.0-0.2) H 10/28/18 07:25 Absolute Neuts (auto) 14.02 10^3/uL (1.70-6.50) H 10/28/18 07:25 Absolute Lymphs (auto) 0.87 10^3/uL (1.00-3.00) L 10/28/18 07:25 Absolute Monos (auto) 0.46 10^3/uL (0.30-0.80) 10/28/18 07:25 Absolute Eos (auto) 0.00 10^3/uL (0.03-0.40) L 10/28/18 07:25 Absolute Basos (auto) 0.02 10^3/uL (0.02-0.10) 10/28/18 07:25 Absolute Nucleated RBC 0.04 10^3/uL (0-0.01) H 10/28/18 07:25 Immature Gran % 0.8 % (0.0-1.1) 10/28/18 07:25 Immature Gran # 0.12 10^3/uL (0.00-0.10) H 10/28/18 07:25 Platelet Estimate ADEQUATE (ADEQ) 10/28/18 07:25 Polychromasia 1+ H 10/28/18 07:25 Hypochromasia 1+ H 10/28/18 07:25 Basophilic Stippling 1+ H 10/26/18 03:45 Microcytic Cells 1+ H 10/25/18 05:30 Target Cells 1+ H 10/28/18 07:25 Tear Drop Cells 1+ H 10/24/18 06:15 Oval Macrocytes 2+ H 10/28/18 07:25 Echinocytes 1+ H 10/28/18 07:25 Elliptocytes 1+ H 10/27/18 06:15 Acanthocytes (Spur) 1+ H 10/26/18 03:45 Schistocytes 1+ H 10/27/18 06:15 Smear Review By Tia MALAGON MD 10/27/18 06:15 PT 17.3 SEC (12.0-15.0) H 10/27/18 06:15 INR 1.40 (0.83-1.16) H 10/27/18 06:15 APTT 33.5 SEC (23.0-38.0) 10/27/18 06:15 VBG Lactic Acid 1.6 mmol/L (0.7-2.1) 10/25/18 15:24 Sodium 141 mEq/L (135-145) 10/28/18 07:25 Potassium 4.2 mEq/L (3.5-5.2) 10/28/18 07:25 Chloride 112 mEq/L (97-110) H 10/28/18 07:25 Carbon Dioxide 20 mEq/l (22-31) L 10/28/18 07:25 Anion Gap 9 mEq/L (6-14) 10/28/18 07:25 BUN 52 mg/dL (7-23) H 10/28/18 07:25 Creatinine 3.6 mg/dL (0.7-1.3) H 10/28/18 07:25 Estimated GFR 18 10/28/18 07:25 Glucose 181 mg/dL (70-100) H 10/28/18 07:25 POC Glucose 166 mg/dL (70-100) H 10/28/18 11:44 Calcium 7.3 mg/dL (8.5-10.4) L 10/28/18 07:25 Ionized Calcium 1.10 MMOL/L (1.12-1.30) L 10/28/18 07:25 Phosphorus 2.4 mg/dL (2.5-4.5) L 10/27/18 06:15 Magnesium 2.2 mg/dL (1.6-2.3) 10/27/18 06:15 Total Bilirubin 0.6 mg/dL (0.1-1.4) 10/28/18 07:25 Conjugated Bilirubin 0.6 mg/dL (0.0-0.5) H 10/23/18 21:45 Unconjugated Bilirubin 0.3 mg/dL (0.0-1.1) 10/23/18 21:45 AST 72 IU/L (17-59) H 10/28/18 07:25 ALT 25 IU/L (21-72) 10/28/18 07:25 Alkaline Phosphatase 57 IU/L (38-126) 10/28/18 07:25 Total Protein 5.0 g/dL (6.3-8.2) L 10/28/18 07:25 Albumin 2.8 g/dL (3.5-5.0) L 10/28/18 07:25 Triglycerides 106 mg/dL (40-150) 10/25/18 05:30 Lipase 66 IU/L (23-300) 10/23/18 21:45 Cortisol AM Sample 53.2 ug/dL (4.5-22.7) H 10/26/18 03:45 Specimen Hemolysis 140 10/24/18 06:15 Urine Color YELLOW 10/24/18 01:45 Urine Appearance HAZY 10/24/18 01:45 Urine pH 5.0 (5.0-7.5) 10/24/18 01:45 Ur Specific [place] 1.011 (1.002-1.030) 10/24/18 01:45 Urine Protein NEGATIVE (NEGATIVE) 10/24/18 01:45 Urine Ketones NEGATIVE (NEGATIVE) 10/24/18 01:45 Urine Blood NEGATIVE (NEGATIVE) 10/24/18 01:45 Urine Nitrate NEGATIVE (NEGATIVE) 10/24/18 01:45 Urine Bilirubin NEGATIVE (NEGATIVE) 10/24/18 01:45 Urine Urobilinogen NEGATIVE EU (0.2-1.0) 10/24/18 01:45 Ur Leukocyte Esterase NEGATIVE (NEGATIVE) 10/24/18 01:45 Ur Random Creatinine 104.3 mg/dL 10/27/18 15:00 Ur Random Sodium < 5 mEq/L (30-90) L 10/27/18 15:00 Urine Glucose NEGATIVE (NEGATIVE) 10/24/18 01:45 Fluid Meso/Macro/[place] % 2 % (70-100) L 10/25/18 11:30 Fl Pathologist Review Wenceslao AUGUSTINE MD 10/25/18 11:30 Fluid Glucose Cancelled 10/25/18 11:30 Fluid Total Protein Cancelled 10/25/18 11:30 Peritoneal Source PERITONEAL 10/25/18 11:30 Peritoneal Color YELLOW (CLS/PALE YL) H 10/25/18 11:30 Peritoneal Appearance CLOUDY (CLEAR) H 10/25/18 11:30 Peritoneal WBC 4153 /mm3 (0-0) H 10/25/18 11:30 Peritoneal RBC 8657 /mm3 (0-0) H 10/25/18 11:30 Periton Neutrophils 93 % (0-7) H 10/25/18 11:30 Periton Lymphocytes % 5 % (0-18) 10/25/18 11:30 Peritoneal Tot Protein 4.2 g/dL 10/25/18 11:30 Peritoneal Glucose 122 mg/dL (55-113) H 10/25/18 11:30
[2018-10-28] MEDS: ACETAMINOPHEN 325 MG TAB PO PRN (14:09)
[2018-10-28] MEDS: HYDROmorphONE/DILAUDID 1 MG/ML INJ IVP PRN ×2 (19:05→23:51)
[2018-10-28] MEDS: TPN 1 EA BAG IV SCH (20:11)
[2018-10-28] MEDS: ATORVASTATIN CALCIUM 20 MG TAB PO SCH (23:38)
[2018-10-29] MEDS: HYDROmorphONE/DILAUDID 1 MG/ML INJ IVP PRN ×3 (04:21→08:52)
[2018-10-29] MEDS: ALBUMIN 25% 100 ML IV SCH (05:33)
[2018-10-29 05:40] VITALS: BP 89/69
[2018-10-29] MEDS: LEVOTHYROXINE 175 MCG TAB PO SCH (07:33)
[2018-10-29] MEDS: INSULIN REGULAR, HUMAN 100 UNIT/1 ML VIAL STANDARD SC SCH ×2 (07:48→07:49)
[2018-10-29] MEDS: Dapagliflozin Propanediol [Farxiga] 10 MG PO SCH (07:50)
[2018-10-29] MEDS ORDERED: ALBUMIN 25% 200 ML IV SCH (08:00)
[2018-10-29] MEDS ORDERED: HYDROmorphONE/DILAUDID 1 MG/ML INJ IVP PRN (08:44)
[2018-10-29] MEDS ORDERED: LORazepam 2 MG/ML INJ IVP PRN (08:44)
[2018-10-29] MEDS ORDERED: morphINE 10 MG/0.5 ML UDSYR PO PRN (08:45)
[2018-10-29] MEDS ORDERED: fentaNYL 25 MCG PATCH TD SCH (08:45)
[2018-10-29] MEDS: SENNOSIDES/DOCUSATE SODIUM TAB PO SCH (09:06)
--- NOTE | 2018-10-29 09:22 | PDIAF ---
- Diagnosis Diagnosis: metastatic sarcoma, renal failure Code Status: Do Not Resuscitate - Medication Management Discharge Medications: electronically signed and located in the Home Medication List. PICC Care - Routine: Yes - Orders Diet Recommendation: no restrictions on diet Additional Instructions: [facility] - Follow Up Care Current Providers and Referrals: Florentino Huang DO [Primary Care Provider] - As per Instructions
--- NOTE | 2018-10-29 12:12 | GDS ---
DISCHARGE DIAGNOSES: 1. 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 2. Abdominal pain, suspected secondary to progressive cancer. 3. Ascites, likely malignant ascites, status post paracentesis with 4 L removed and noted reaccumulation. 4. Possible spontaneous bacterial peritonitis. 5. Acute kidney injury. 6. Malnutrition. 7. Hypotension, responsive to intravenous fluids. 8. Diabetes. 9. Hypertension. 10. C4 pathologic fracture, remains in cervical collar. CONSULTANTS: 1. Dr. Bashir Rodrigues, Oncology. 2. Dr. Ashley John, Nephrology. HISTORY OF DETAILS: Please see history and physical dated October 24, 2018. In brief, Mr. Wood is a 53-year-old male with an unfortunate history of metastatic sarcoma, who presented to the hospital with abdominal pain, nausea and vomiting. He was found to have ascites. He underwent paracentesis and was admitted to the hospital for further management. HOSPITAL COURSE: The patient was admitted to the intensive care unit. He was initiated on ceftriaxone and Flagyl for a possible intraabdominal infection, including coverage of SBP. His ascitic fluid showed elevated white blood cells with neutrophilia. Abdomen CT showed extensive osseous metastatic disease with moderate ascites as well as extensive bowel wall thickening and enlarged lymph nodes in the pelvis with stranding of the mesentery and omentum suspicious for carcinomatosis. In addition, he had mild bilateral effusions. After a high- volume paracentesis of 4 L, he then developed worsening kidney failure. His albumin was low at 1.8. He received albumin boluses and one dose of Lasix, however, his creatinine continued to rise and he has had very poor urine output. Nephrology consult was obtained. During this time, we had ongoing discussions about his goals of care. Oncology was involved and discussed the case with his [place] oncologist. It has become evident that he unfortunately has rapidly progressive and very aggressive cancer and at this point, there are no further treatment options. He had discussion with his oncologist, Dr. Moody from [place] and after this, he decided that he wished to pursue comfort measures and proceed with hospice care. On the day of discharge, I offered him repeat paracentesis with consideration of placement of a [place] drain for palliative reasons to provide ongoing comfort. He states he is not uncomfortable from his ascites and he has no pain at this time and he actually wishes to defer any further procedures, which I think is reasonable. His pain has been controlled with a fentanyl patch and p.r.n. IV Dilaudid. DISPOSITION: Patient is discharged to inpatient [facility] for ongoing comfort care hospice measures. DISCHARGE MEDICATIONS: Please see [employer] completed outpatient medication list. New medications on discharge include fentanyl patch 25 mcg q.72 hours, Dilaudid 0.4 mg IV q.2 hours p.r.n., Ativan 0.5 to 1 mg IV q.4 hours p.r.n., Roxanol 5 to 15 mg p.o. q.1 hour p.r.n., Zofran 4 mg IV or p.o. q.4 hours p.r.n. , Phenergan 6.25 mg IV q.6 hours p.r.n. He will continue Tylenol as needed. He can discontinue all other outpatient medications. /[id number]/MODL MTDD
--- NOTE | 2018-10-29 12:17 | ASMTDCNOTE ---
Case Management Discharge Discharge Order Complete? Answers: Yes Patient to Obtain Answers: Other Notes: [facility] Medications Transportation Arranged Answers: [facility] St[facility]cher Transport will Pick (Date 10/29/2018 12:00 AM & Time) Case Management Transport Answers: Yes Notes: [facility] for [facility] Form Complete Faxed Final Orders Answers: Yes Notes: [facility] Agency/Facility Transfer Answers: Yes Notes: [facility] Report Printed & Faxed to Receiving Agency Family Notified Answers: Yes Notes: Shireen, girlfrienduy Discharge Comments Notes: Patient is discharging to the [facility] today. Transport arranged with [facility], stretcher, for 1:00 today. Nurse has done report. Discharge summaries have been faxed All[facility] to [facility]. Patient's girlfriend Shireen will follow the ambulance to the hospice center. No further needs. Date Signed: 10/29/2018 12:16 PM Electronically Signed By:Ev Bradshaw LCSW
--- NOTE | 2018-10-29 12:18 | ASMTLACE ---
LACE Length of stay for Answers: 4-6 days current admission Acuity / Level of Answers: Yes Care: Did the patient have an inpatient admission? Comorbidities - select Answers: Any tumor (including all that apply lymphoma or leukemia) Diabetes (uncontrolled or controlled) Opioid dependence / Chronic pain Other Notes: HTN; HLD; Hypothyroid # of Emergency department Answers: 1-2 visits in the last 6 months Score: 16 Date Signed: 10/29/2018 12:17 PM Electronically Signed By:Ev Bradshaw LCSW
--- NOTE | 2018-10-29 12:25 | ASDISCHSUM ---
Discharge Information Plan Status:Hospice-Inpatient Medically Cleared to Leave:10/28/2018 Discharge Date:10/28/2018 CM D/C Disposition:Hospice Facility ADT D/C Disposition:Hospice Facility Projected Discharge Date:10/29/2018 11:00 AM Transportation at D/C:Other Discharge Delay Reason: Follow-Up Date:10/29/2018 11:00 AM Discharge Slot:2 - 12:01 pm - 18:00 pm Final Diagnosis:Metastaitc sarcoma, renal failure Placement Information Referral Type:Palliative Care Referral ID:[id number] Provider [facility] Address 1:[address] [place] Address 2: City:[place] Selection Factors: State:[place] Patient Contact Information Contact Name:GOVINDMAKENZIEJACKI Relationship:Life Partner Address:[address] [place] [address] Work Phone: City:[place] Alternate Phone: State/Zip Code:[place] [address] Email: Financial Information Financial Class:BCOP Primary Plan Desc:[employer] P[employer] HMO Primary Plan Number:[id number] Secondary Plan Desc: Secondary Plan Number: Assessment Information [facility] Progress Note CM Note CM Note Notes: Pt is a 53 yo M presents with hypotension and dehydration. 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 Pt lives in mobile home with 4 steps with his partner, Shireen. During rounds she expressed her concerns that she is unable to help him get up steps. They are looking into getting a ramp but may take about a month. Pt is resistant to help in the home but Shireen reports she needs help. CM provided education about PT/OT evaluations and that CM would continue to follow to ensure discharge needs are met. CM provided education about obtaining support from [employer], pt and Shireen were interested. CM to help identify how fund can be helpful and follow-up. Plan: TBD as pt progresses medically. Date Signed: 10/24/2018 11:58 AM Electronically Signed By:PURVI Cotton LACE LACElias Length of stay for Answers: 4-6 days current admission Acuity / Level of Answers: Yes Care: Did the patient have an inpatient admission? Comorbidities - select Answers: Any tumor (including all that apply lymphoma or leukemia) Diabetes (uncontrolled or controlled) Opioid dependence / Chronic pain Other Notes: HTN; HLD; Hypothyroid # of Emergency department Answers: 1-2 visits in the last 6 months Score: 16 Date Signed: 10/29/2018 12:17 PM Electronically Signed By:Ev Bradshaw LCSW [facility] Progress Note CM Note CM Note Notes: TIARRA met with Shireen, pt's partner who said people are coming to give estimate on cost of Ramp for their house w/4 steps. Shireen is to let TIARRA know the cost of Ramp and CM will contact [employer] to determine how much [facility] can provide support. Shireen informed it probably won't be full cost of ramp, but may be some. CM to then submit referral to [employer]. CM provided support to Shireen. 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 She reports she has been putting her needs on the backburner. CM provided support and education on supports and encouraged Shireen to let staff know if she needs additional support. CM to follow. Plan: TBD Date Signed: 10/25/2018 03:24 PM Electronically Signed By:PURVI Cotton [facility] Progress Note CM Note CM Note Notes: A family meeting was held yesterday for Patient. In attendance were Shireen, patient's girlfriend/partner, Ilana, nurse school operations manager, chaplain Michell, and Ev, case resource manager. Shireen states she is MDPOA but they gave the paperwork to [facility] and do not have a copy at home. It was decided, we would redo the paperwork since it will be more efficient than signing releases and requesting records. Shireen states she is overwhelmed with managing care for Brian as a girlfriend instead of a . She has many concerns the family will ask her to leave when he is dying since they have asked her to leave a lot in the past when she has been caring for Brian during hospitalizations. Shireen was assured that if she is MDPOA, she has rights to remain with the patient and no one will have the authority to ask her to leave. Shireen also was concerned that the oncologists speak more frankly to Brian as she feels he is in denial. Shireen did say patient prefers a gentler style of communication and has a difficult time with overly direct approaches. But she feels he needs to be more in touch with reality for planning purposes. Shireen states Brian is working on getting a ramp for the trailor so he can access the entrance with his wheelchair. We stated we would look into the "[employer]" to see if they can help pay for it. Shireen is struggling with Brian not wanting her to talk to anyone about personal information and the difficult positions this puts her in when trying to resolve problems. Discussed ways she can manage information and still resolve problems, including getting ideas and support from a cancer support group for caretakers. Shireen was interested and the case resource manager will get her on the email list so she will be notified for the next group in November.Shireen also asked about Palliative Care and Michell answered her questions. Shireen states she does think they want a Palliative Care consult.The next steps established in the meeting are:sign Shireen up for the support group, 2)[facility] paperwork, 3) set up a palliative care consult, 4)check into the "[employer]" to assist patient with getting the ramp built for access. Shireen was informed she can request a family meeting whenever she feels she needs one. CM will also continue to check in with her regarding her needs and to provide support.CM will follow. Date Signed: 10/27/2018 09:34 AM Electronically Signed By:Ev Bradshaw LCSW Case Management Discharge Plan Note Case Management Discharge Discharge Order Complete? Answers: Yes Patient to Obtain Answers: Other Notes: [facility] Medications Transportation Arranged Answers: [facility] Transport will Pick (Date 10/29/2018 12:00 AM & Time) Case Management Transport Answers: Yes Notes: [facility] Form Complete Faxed Final Orders Answers: Yes Notes: [facility] Agency/Facility Transfer Answers: Yes Notes: [facility] Report Printed & Faxed to Receiving Agency Family Notified Answers: Yes Notes: Shireen, speedyfrienduy Discharge Comments Notes: Patient is discharging to the [facility] today. Transport arranged with [facility], for 1:00 today. Nurse has done report. Discharge summaries have been faxed Allscripts to [facility]. Patient's girlfriend Shireen will follow the ambulance to the hospice center. No further needs. Date Signed: 10/29/2018 12:16 PM Electronically Signed By:Ev Bradshaw LCSW Intervention Information
== END 2018-10-29 13:15 | disposition hospice, home (50) | DRG 374 ==
LOC: F2N 10-24 00:33
PROVIDERS: ADMIT Student in an Organized Health Care Education/Training Program; ATTEND Student in an Organized Health Care Education/Training Program
PROC: 02HV33Z Insertion of Infusion Device into Superior Vena Cava, Percutaneous Approach (ICD-10-PCS; 2018-10-24)
PROC: 0W9G3ZX Drainage of Peritoneal Cavity, Percutaneous Approach, Diagnostic (ICD-10-PCS; principal; 2018-10-25)
DX: C78.6 Secondary malignant neoplasm of retroperitoneum and peritoneum (principal); K65.2 Spontaneous bacterial peritonitis; R18.0 Malignant ascites; N17.9 Acute kidney failure, unspecified; N39.0 Urinary tract infection, site not specified; B95.2 Enterococcus as the cause of diseases classified elsewhere; E46 Unspecified protein-calorie malnutrition; E11.9 Type 2 diabetes mellitus without complications; E03.9 Hypothyroidism, unspecified; M84.48XA Pathological fracture, other site, initial encounter for fracture; I95.9 Hypotension, unspecified; C79.51 Secondary malignant neoplasm of bone; I10 Essential (primary) hypertension; Z89.612 Acquired absence of left leg above knee; Z85.831 Personal history of malignant neoplasm of soft tissue
CPT/HCPCS: 96374; 97116-GP; 97163-GP; 97166-GO; 97530-GO; 97530-GP; C1751; J0290; J0610; J0696; J1170; J1650; J1815; J1940; J2405; J2543; J2550; J3480; P9047; Q9967